=== PATIENT | male | born 1975 | race Caucasian/White ===

== ENCOUNTER 2018-02-28 18:39 | Emergency (ER) | payer OTHER ==
[2018-02-28] MEDS ORDERED: ceFAZolin 1,000 MG in DEXTROSE/WATER 1 50ML.BAG IVPB STA (18:55)
[2018-02-28 19:02] LABS: Basophils # (A) 0.1 k/uL (0-0.2); Basophils % (A) 1 %; Eosinophils # (A) 0.2 k/uL (0-0.7); Eosinophils % (A) 2 %; HCT 51.3 % (39.0-53.0); Lymphocytes # (A) 2.7 k/uL (1.0-4.8); Lymphocytes % (A) 39 %; MCH 33.6 pg (25.0-35.0); MCHC 33.1 g/dL (31.0-37.0); MCV 101.5 fL (80.0-100.0); Mean Platelet Volume 6.9; Monocytes # (A) 0.4 k/uL (0-1.0); Monocytes % (A) 6 %; Neutrophils # (A) 3.5 k/uL (1.3-7.7); Neutrophils % (A) 50 %; Platelet Count 189 k/uL (150-450); RBC 5.06 m/uL (4.30-5.90); RDW 12.6 % (11.5-15.5)
[2018-02-28] MEDS ORDERED: PROPOFOL 10 MG/ML 20 ML VIAL IV STA (19:02)
[2018-02-28] MEDS ORDERED: DIPH,PERTUS(ACELL)TETVAC-LF 0.5 ML VIAL IM ONE (19:02)
--- NOTE | 2018-02-28 19:03 | XR ---
EXAMINATION TYPE: XR ankle limited LT DATE OF EXAM: 02/28/2018 COMPARISON: NONE HISTORY: Trauma. Pain TECHNIQUE: 2 views FINDINGS: There is comminuted fracture distal fibula. There is anterior dislocation of the talus. The re is significant overriding of the distal tibia with the talus. There is probably a fracture of the medial malleolus. IMPRESSION: There is comminuted fracture dislocation of the ankle joint. Significant anterior displac ement of the talus. Fracture appears open on the posterior aspect. There is probably fracture of the posterior malleolus.
--- NOTE | 2018-02-28 19:05 | XR ---
EXAMINATION TYPE: XR chest 1V portable DATE OF EXAM: 02/28/2018 COMPARISON: NONE HISTORY: Ankle trauma. Chest pain TECHNIQUE: Single frontal view of the chest is obtained. FINDINGS: Heart and mediastinum are normal. Lungs are clear. Diaphragm is normal. There are chest le ads. IMPRESSION: Normal chest
--- NOTE | 2018-02-28 19:08 | ED ---
General Adult HPI - General Stated complaint: leg injury Time Seen by Provider: 02/28/18 18:40 Source: patient, EMS, RN notes reviewed, old records reviewed Mode of arrival: EMS Limitations: no limitations - History of Present Illness Initial comments: 43-year-old male presenting as a priority 2 trauma, open ankle injury. According the EMS patient has pulseless left lower extremity. Patient was jumping on a trampoline, fell onto his left ankle. He is complaining only of ankle pain. No head neck or back pain. He does admit to drinking some alcohol. No chest pain or abdominal pain. No difficulty breathing. Patient is uncertain of his last tetanus. - Related Data Allergies Allergy/AdvReac Type Severity Reaction Status Date / Time No Known Allergies Allergy Verified 02/28/18 18:48 Review of Systems ROS Statement: Those systems with pertinent positive or pertinent negative responses have been documented in the HPI. ROS Other: All systems not noted in ROS Statement are negative. Past Medical History Past Medical History: COPD, Hypertension History of Any Multi-Drug Resistant Organisms: None Reported Past Surgical History: Orthopedic Surgery Additional Past Surgical History / Comment(s): jaw, wrist Past Psychological History: No Psychological Hx Reported Smoking Status: Current every day smoker Past Alcohol Use History: Daily Past Drug Use History: None Reported General Exam Limitations: no limitations General appearance: alert, in no apparent distress, appears intoxicated Head exam: Present: atraumatic, normocephalic Eye exam: Present: normal appearance, PERRL ENT exam: Present: normal exam Neck exam: Present: normal inspection. Absent: tenderness, meningismus Respiratory exam: Present: normal lung sounds bilaterally. Absent: respiratory distress, wheezes Cardiovascular Exam: Present: regular rate, normal rhythm GI/Abdominal exam: Present: soft. Absent: distended, tenderness, guarding Extremities exam: Present: other (Left ankle: Fracture dislocation noted on external exam, the lower portion of the tibia is completely exposed through the medial aspect of the ankle. There is delayed cap refill and thready pulse in the foot.) Course Vital Signs 02/28/18 18:46 Pulse Rate 87 Respiratory 20 Rate Blood Pressure 146/101 Procedures - Orthopedic Fracture Reduction Fracture #1 Consent Obtained: verbal consent Time Out Performed: Yes Side: left Fracture Reduction Location: tibia, fibula Analgesia: procedural sedation Technique: direct manipulation Post Reduction X-rays Demonstrate: anatomical reduction Post-Reduction Neuro Exam: no change Post-Reduction Vascular Exam: other (Improved. Pulse) Splint Applied: Yes Patient Tolerated Procedure: well - Orthopedic Splinting/Casting Injury #1 Side: left Lower Extremity Injury Location: ankle Lower Extremity Immobilizer: synthetic pre-padded splint, fiberglass cast Other Orthopedic Equipment: other Additional Comments: Patient placed in posterior mold with stirrup. Pulse is improved Refill less than 2 seconds. Medical Decision Making - Medical Decision Making Case discussed with orthopedics on-call Dr. Brooks at [phone], recommends transfer. 43-year-old male with open fracture dislocation left ankle. Ankle is irrigated with normal saline, patient given antibiotics, tetanus updated, under conscious sedation the ankle is reduced, there is satisfactory alignment with improved pulse and cap refill. Case is discussed with ER physician and [facility], will accept transfer for urgent orthopedic evaluation. All laboratory studies are pending. Critical Care Time Critical Care Time: Yes Total Critical Care Time: 35 Disposition Clinical Impression: Open fracture dislocation of ankle Disposition: OTHER INSTITUTION NOT DEFINED Condition: Serious Is patient prescribed a controlled substance at d/c from ED?: No Referrals: Tracy Maynard MD [Primary Care Provider] - 1-2 days Time of Disposition: 19:07 - Out of Hospital Transfer - Req. Specs Out of Hospital Transfer - Requested Specifics: Other Emergency Center ( Transferred to [facility])
[2018-02-28 19:10] LABS: ALT 140 U/L (21-72); AST 103 U/L (17-59); Albumin 4.5 g/dL (3.5-5.0); Alkaline Phosphatase 52 U/L (38-126); Amylase 49 U/L (30-110); Anion Gap 13 mmol/L; Blood Urea Nitrogen 4 mg/dL (9-20); Calcium 8.9 mg/dL (8.4-10.2); Carbon Dioxide 23 mmol/L (22-30); Chloride 102 mmol/L (98-107); Glucose 99 mg/dL (74-99); Lipase 132 U/L (23-300); Potassium 4.3 mmol/L (3.5-5.1); Sodium 138 mmol/L (137-145); Total Bilirubin 0.4 mg/dL (0.2-1.3); Total Protein 7.7 g/dL (6.3-8.2)
[2018-02-28 19:14] LABS: Creatine Kinase 88 U/L (55-170); Partial Thromboplastin Time 23.6 sec (22.0-30.0); Prothrombin Time 9.8 sec (9.0-12.0)
[2018-02-28 19:21] LABS: Alcohol 379 mg/dL
[2018-02-28 19:26] LABS: Creatine Kinase MB 0.7 ng/mL (0.0-2.4); Troponin I <0.012 ng/mL (0.000-0.034)
--- NOTE | 2018-02-28 19:29 | XR ---
EXAMINATION TYPE: XR ankle limited LT DATE OF EXAM: 02/28/2018 CLINICAL HISTORY: TECHNIQUE: 2 views COMPARISON: Today FINDINGS: There is anatomic reduction of the dislocated talus. There is comminuted fracture distal fi bula and probably a large chip fracture of the posterior malleolus. Detail is limited. Calcaneus is n ot entirely included on the exam. IMPRESSION: Much improved anatomic position of the ankle joint.
[2018-02-28 19:57] VITALS: BP 146/86; PULSE 85; RESP 18
== END 2018-02-28 19:21 | disposition short-term general hospital (02) ==
LOC: EC 18:39
DX: S82.832B Other fracture of upper and lower end of left fibula, initial encounter for open fracture type I or II (principal); F10.129 Alcohol abuse with intoxication, unspecified; F17.200 Nicotine dependence, unspecified, uncomplicated; Z23 Encounter for immunization; W19.XXXA Unspecified fall, initial encounter; Y93.44 Activity, trampolining
CPT/HCPCS: 99291; 27788; 99152; 96374; 90471; 36415; 86900; 86901; 80053; 82150; 82550; 82553; 83605; 83690; 84484; 85025; 85610; 85730; 86850; 73600; 71045; 90715; L0120; G0480; J0690; J2704; 80320

== ENCOUNTER 2018-08-14 12:31 | Emergency (ER) | payer OTHER ==
[2018-08-14 12:40] VITALS: RESP 18
[2018-08-14] MEDS ORDERED: MORPHINE SULFATE 4 MG/ML SYRINGE IM STA (13:00)
--- NOTE | 2018-08-14 13:16 | ED ---
Lower Extremity Injury HPI - General Source: patient, family Mode of arrival: ambulatory Limitations: no limitations <Kayleigh Muro - Last Filed: 08/14/18 14:33> <Raf Waters - Last Filed: 08/14/18 15:03> - General Chief Complaint: Extremity Injury, Lower Stated Complaint: left ankle pain/swelling - History of Present Illness Initial Comments: 43-year-old male past medical history of previous left ankle fracture repaired at [facility] by in 02/2018. Patient states that he has been amply on his ankle more than recommended and has lost his use for ambulation. Patient states that last week he also slipped and fell on ice twisting his left ankle. Patient was considered displacement. Patient did note an area of erythema on the medial aspect of the left ankle, patient states she was concerned infection. Upon arrival patient appears well he denies any fever, chills, general malaise. Pt ambulating weight bearing on the left foot when entering ER. Remaining ROS (- ), patient denies any shortness of breath, chest pain, back pain, abdominal pain, nausea or vomiting, numbness or tingling, dysuria or hematuria, cons tipation or diarrhea, headaches or visual changes, or any other complaints. (Kayleigh Muro) - Related Data Home Medications Medication Instructions Recorded Confirmed No Known Home Medications 02/28/18 02/28/18 Allergies Allergy/AdvReac Type Severity Reaction Status Date / Time No Known Allergies Allergy Verified 08/14/18 12:37 Review of Systems ROS Other: All systems not noted in ROS Statement are negative. <Kayleigh Muro - Last Filed: 08/14/18 14:33> ROS Other: All systems not noted in ROS Statement are negative. <Raf Waters - Last Filed: 08/14/18 15:03> ROS Statement: Those systems with pertinent positive or pertinent negative responses have been documented in the HPI. Past Medical History Past Medical History: COPD, Hypertension History of Any Multi-Drug Resistant Organisms: None Reported Past Surgical History: Orthopedic Surgery Additional Past Surgical History / Comment(s): jaw, wrist Past Psychological History: No Psychological Hx Reported Smoking Status: Current every day smoker Past Alcohol Use History: Daily Past Drug Use History: None Reported <Kayleigh Muro - Last Filed: 08/14/18 14:33> General Exam Limitations: no limitations <Kayleigh Muro - Last Filed: 08/14/18 14:33> - General Exam Comments Initial Comments: General: The patient is awake and alert, in no distress, and does not appear acutely ill. Eye: Pupils are equal, round and reactive to light, extra-ocular movements are intact. No nystagmus. There is normal conjunctiva bilaterally. No signs of icterus. Ears, nose, mouth and throat: There are moist mucous membranes and no oral lesions. Neck: The neck is supple, there is no tenderness or JVD. Cardiovascular: There is a regular rate and rhythm. No murmur, rub or gallop is appreciated. Respiratory: Lungs are clear to auscultation, respirations are non-labored, breath sounds are equal. No wheezes, stridor, rales, or rhonchi. Musculoskeletal: Upon inspection of the ankles bilaterally there is soft tissue swelling of the left ankle with tenderness to palpation over the ankle joint diffusely. There is area of erythema on the medial aspect with palpable fluctuance. Sensation intact both proximal distal to injury patient can somewhat range at the left ankle however this is limited, he states this is baseline from surgery. DP pulses equal bilaterally 2+. Capillary refill < 2 seconds. Neurological: A&O x 3. CN II-XII intact, There are no obvious motor or sensory deficits. Coordination appears grossly intact. Speech is normal. Skin: Skin is warm and dry and no rashes or lesions are noted. Psychiatric: Cooperative, appropriate mood & affect, normal judgment. (Kayleigh Muro) Course <Raf Waters - Last Filed: 08/14/18 15:03> Vital Signs 08/14/18 08/14/18 12:37 14:47 Temperature 97.9 F 97.8 F Pulse Rate 109 H 88 Respiratory 18 18 Rate Blood Pressure 148/96 148/97 O2 Sat by Pulse 97 96 Oximetry - Reevaluation(s) Reevaluation #1: 08/14/18 15:02 PA supervision: I proceeded [id number] evaluation the patient he has a history of a open distal tib-fib fracture with ORIF in February this past year. He was to wear an orthopedic boot for 6 months he did not wear it. He has been ambulating. He has had pain and some swelling with erythema to the medial malleolus. Patient does have evidence of abscess formation this was confirmed after I&D by the physician travel assistant. The case was discussed with Dr. Dickey and the patient be transferred to [facility] for further evaluation and care. (Raf Waters) Medical Decision Making <Kayleigh Muro - Last Filed: 08/14/18 14:33> - Medical Decision Making 43yo with swelling and erythema of left ankle. No constitutional symptoms. Patient does not appear toxic. Recent fall. XR (-) for obvious hardware abnormalities or acute fracture. The erythema appears within tissues with palpable abscess that was needle aspirated revealing magdalena think pus. Pt surgeon contacted. I spoke with Dr. Dickey directly, recommended transfer. He states he will obtain laboratory studies at his facility. Pt prefers personal vehicle transfer. Dr. Dickey agreedable with this type of transfer and am I. she was evaluated in person with attending provider Dr. Waters who is agreeable patient's care plan as well as transfer. Patient states he will go directly to accepting facility. Patient is provided with directions as well as an address. Patient transferred, appearing well. (Kayleigh Muro) Disposition Is patient prescribed a controlled substance at d/c from ED?: No Time of Disposition: 14:39 - Out of Hospital Transfer - Req. Specs Out of Hospital Transfer - Requested Specifics: Other Emergency Center ([facility]-Dr. Dickey) <Kayleigh Muro - Last Filed: 08/14/18 14:33> <Raf Waters - Last Filed: 08/14/18 15:03> Clinical Impression: Cellulitis of left ankle, Abscess, Right ankle injury, Right ankle swelling Disposition: OTHER INSTITUTION NOT DEFINED Condition: Stable Additional Instructions: Please go to [facility] directly as discussed. Emergency department has accepted transfer and is awaiting your arrival Referrals: None,Stated [Primary Care Provider] - 1-2 days
--- NOTE | 2018-08-14 13:48 | XR ---
Left ankle HISTORY: Trauma and pain 3 views of the left ankle correlated to prior exam 02/28/2018 There is extensive soft tissue swelling. Postop changes are present status post open reduction director international al fixation for trimalleolar fracture. Possible ankle joint effusion. Plantar calcaneal spur is noted . Some joint space loss present at the tibiotalar joint. Widening of the tibiotalar joint of the medi al ankle mortise level could be due to ligamentous laxity or disruption. Ossific densities are presen t about the fracture sites which may be due to heterotopic new bone formation. IMPRESSION: Postop changes. No definite acute fracture or dislocation. Soft tissue swelling. Addition al findings above.
[2018-08-14 14:48] VITALS: BP 148/97; PULSE 88; TEMP 97.8
== END 2018-08-14 15:04 | disposition short-term general hospital (02) ==
LOC: EC 12:31
DX: L03.116 Cellulitis of left lower limb (principal); L02.416 Cutaneous abscess of left lower limb; S99.911A Unspecified injury of right ankle, initial encounter; F17.200 Nicotine dependence, unspecified, uncomplicated; Z87.81 Personal history of (healed) traumatic fracture; Z96.698 Presence of other orthopedic joint implants; W00.0XXA Fall on same level due to ice and snow, initial encounter
CPT/HCPCS: 73610; 99284; 10160; 96372; J2270

== ENCOUNTER 2018-12-19 14:32 | Emergency (ER) | payer OTHER ==
[2018-12-19 14:42] VITALS: RESP 18; TEMP 98.1
--- NOTE | 2018-12-19 15:05 | ED ---
Lower Extremity Injury HPI - General Chief Complaint: Extremity Injury, Lower Stated Complaint: Abscess on ankle Time Seen by Provider: 12/19/18 14:48 Source: patient, RN notes reviewed Mode of arrival: ambulatory Limitations: no limitations - History of Present Illness Initial Comments: 43-year-old male presents emergency Department with chief complaint of left ankle pain, swelling and abscess. Patient states that he had original surgery last February for ORIF by Dr. Dickey. Patient states that he cannot have an infection and states that he had a washout in August and states that he was on IV antibiotics and did follow-up with infectious disease. Patient states that he was cleared to return to normal activity. Patient states over the last 5-6 days states that slowly progressively worsening pain to the point where he cannot bear any weight on it. Patient states that he noticed an area swelling, redness and which feels like a fluctuant abscess. Patient reports subjective fevers and chills and night sweats. Patient states that he was not have any pain at this. - Related Data Home Medications Medication Instructions Recorded Confirmed Lisinopril 20 mg PO DAILY 12/19/18 12/19/18 Allergies Allergy/AdvReac Type Severity Reaction Status Date / Time No Known Allergies Allergy Verified 12/19/18 14:52 Review of Systems ROS Statement: Those systems with pertinent positive or pertinent negative responses have been documented in the HPI. ROS Other: All systems not noted in ROS Statement are negative. Past Medical History Past Medical History: COPD, Hypertension History of Any Multi-Drug Resistant Organisms: None Reported Past Surgical History: Orthopedic Surgery Additional Past Surgical History / Comment(s): jaw, wrist, L ankle Past Psychological History: Anxiety Smoking Status: Current every day smoker Past Alcohol Use History: None Reported, Daily Past Drug Use History: None Reported General Exam Limitations: no limitations General appearance: alert, in no apparent distress Head exam: Present: atraumatic, normocephalic, normal inspection Respiratory exam: Present: normal lung sounds bilaterally. Absent: respiratory distress, wheezes, rales, rhonchi, stridor Cardiovascular Exam: Present: regular rate, normal rhythm, normal heart sounds. Absent: systolic murmur, diastolic murmur, rubs, gallop, clicks Extremities exam: Present: other (Left ankle there is slightly increased erythema and bogginess along the medial incision site. There is tenderness diffusely, moderate swelling neurovascular intact) Skin exam: Present: warm, dry, intact Course Vital Signs 12/19/18 14:38 Temperature 98.1 F Pulse Rate 107 H Respiratory 18 Rate Blood Pressure 158/79 O2 Sat by Pulse 95 Oximetry Procedures - Incision & Drainage Consent Obtained: verbal consent Site: lower extremity (Left ankle) Size (cm): 2 I&D Cleaning Method: Chloroprep Needle Aspiration Performed?: Yes I&D Drainage Obtained: Pus Culture Obtained?: Yes Medical Decision Making - Medical Decision Making 43-year-old male presented from it for increasing ankle pain. Patient had lab work, x-ray. Patient also had aspiration of the fluctuant pocket on his ankle since found to be purulent drainage. Patient states case discussed with this orthopedic physician Dr. Dickey who recommends menstruation to be transferred to [facility]. Patient was given Ancef and will need further antibiotics at this time. - Lab Data Result diagrams: 12/19/18 15:09 12/19/18 15:09 Lab Results 12/19/18 12/19/18 12/19/18 Range/Units 15:09 15:09 15:09 WBC 7.8 (3.8-10.6) k/uL RBC 4.64 (4.30-5.90) m/uL Hgb 15.1 (13.0-17.5) gm/dL Hct 43.7 (39.0-53.0) % MCV 94.3 (80.0-100.0) fL MCH 32.6 (25.0-35.0) pg MCHC 34.6 (31.0-37.0) g/dL RDW 13.9 (11.5-15.5) % Plt Count 207 (150-450) k/uL Neutrophils % 81 % Lymphocytes % 9 % Monocytes % 6 % Eosinophils % 2 % Basophils % 0 % Neutrophils # 6.3 (1.3-7.7) k/uL Lymphocytes # 0.7 L (1.0-4.8) k/uL Monocytes # 0.5 (0-1.0) k/uL Eosinophils # 0.2 (0-0.7) k/uL Basophils # 0.0 (0-0.2) k/uL Sodium 131 L (137-145) mmol/L Potassium 4.7 (3.5-5.1) mmol/L Chloride 97 L (98-107) mmol/L Carbon Dioxide 24 (22-30) mmol/L Anion Gap 10 mmol/L BUN 11 (9-20) mg/dL Creatinine 0.62 L (0.66-1.25) mg/dL Est GFR (CKD-EPI)AfAm >90 (>60 ml/min/1.73 sqM) Est GFR (CKD-EPI)NonAf >90 (>60 ml/min/1.73 sqM) Glucose 110 H (74-99) mg/dL Plasma Lactic Acid Rich 1.1 (0.7-2.0) mmol/L Calcium 9.9 (8.4-10.2) mg/dL C-Reactive Protein 30.5 H (<10.0) mg/L Disposition Clinical Impression: Septic arthritis of ankle, Abscess of ankle Disposition: OTHER INSTITUTION NOT DEFINED Condition: Stable Referrals: Tracy Maynard MD [Primary Care Provider] - 1-2 days - Out of Hospital Transfer - Req. Specs Out of Hospital Transfer - Requested Specifics: Other Emergency Center ([facility])
[2018-12-19 15:21] LABS: Basophils % (A) 0 %; Eosinophils # (A) 0.2 k/uL (0-0.7); Eosinophils % (A) 2 %; HCT 43.7 % (39.0-53.0); HGB 15.1 gm/dL (13.0-17.5); Lymphocytes # (A) 0.7 k/uL (1.0-4.8); Lymphocytes % (A) 9 %; MCH 32.6 pg (25.0-35.0); MCHC 34.6 g/dL (31.0-37.0); MCV 94.3 fL (80.0-100.0); Monocytes # (A) 0.5 k/uL (0-1.0); Monocytes % (A) 6 %; Neutrophils # (A) 6.3 k/uL (1.3-7.7); Neutrophils % (A) 81 %; Platelet Count 207 k/uL (150-450); RBC 4.64 m/uL (4.30-5.90); RDW 13.9 % (11.5-15.5); WBC 7.8 k/uL (3.8-10.6)
--- NOTE | 2018-12-19 15:27 | XR ---
EXAMINATION TYPE: XR ankle complete LT DATE OF EXAM: 12/19/2018 COMPARISON: 08/14/2018 HISTORY: Pain FINDINGS: Three views of the ankle demonstrate asymmetry the ankle mortise with narrowing. There is widening of the halo tibial joint medially. This is similar to the prior exam. Extensive postsurgical changes ar e noted there appears to be widening of the tibiofibular joint. Soft tissue edema and diffuse osteope melina noted. Soft tissue ossification noted. Small plantar calcaneal spur. 6 joint effusion suspected. Abnormal morphology of the talar dome not excluded. IMPRESSION: 1. Postsurgical changes are stable. Distortion of the ankle mortise and widening of the tibiofibular joint are stable. Soft tissue or a ligamentous injury in the differential diagnosis. 2. There is a localized lucency involving the anterior margin of the inferior calcaneus noted on the lateral view. If there is concern for infection correlate with triple phase bone scan.
[2018-12-19 15:33] LABS: African American GFR (CKD) >90 (>60 ml/min/1.73 sqM); Anion Gap 10 mmol/L; Blood Urea Nitrogen 11 mg/dL (9-20); C Reactive Protein 30.5 mg/L (<10.0); Calcium 9.9 mg/dL (8.4-10.2); Carbon Dioxide 24 mmol/L (22-30); Chloride 97 mmol/L (98-107); Glucose 110 mg/dL (74-99); Potassium 4.7 mmol/L (3.5-5.1); Sodium 131 mmol/L (137-145)
[2018-12-19] MEDS ORDERED: HYDROmorphone 1 MG/ML 1 ML SYRINGE IVP STA (15:55)
[2018-12-19] MEDS ORDERED: ONDANSETRON 4 MG/2 ML VIAL IVP STA (15:55)
[2018-12-19] MEDS ORDERED: ceFAZolin IN SWFI 2 GM/20 ML SYRINGE IVP ONE (16:00)
[2018-12-19 17:14] VITALS: BP 141/70; PULSE 99
== END 2018-12-19 17:14 | disposition short-term general hospital (02) ==
LOC: EC 14:32
DX: L02.416 Cutaneous abscess of left lower limb (principal); M00.9 Pyogenic arthritis, unspecified; I10 Essential (primary) hypertension; F17.200 Nicotine dependence, unspecified, uncomplicated; Z79.899 Other long term (current) drug therapy
CPT/HCPCS: 36415; 80048; 83605; 85025; 86140; 87040; 87070; 87205; 73610; 99284; 10160; 96374; 96375 ×2; J2405; J1170; J0690; 87077; 87186

== ENCOUNTER 2019-03-18 12:49 | Inpatient (IN) | payer OTHER ==
[2019-03-18] MEDS ORDERED: MORPHINE SULFATE 4 MG/ML SYRINGE IVP STA (13:21)
--- NOTE | 2019-03-18 13:38 | ED ---
General Adult HPI <JtRaf - Last Filed: 03/18/19 14:38> - General Source: patient, family Mode of arrival: wheelchair Limitations: no limitations <Brandt Boyd - Last Filed: 03/18/19 19:55> - General Chief complaint: Extremity Injury, Lower Stated complaint: Fall Time Seen by Provider: 03/18/19 13:05 - History of Present Illness Initial comments: Patient is a 44-year-old male presenting to the emergency department with a chief complaint of hip pain. Patient reports he had a recent ankle surgery and is still recovering in using crutches to avoid weightbearing. Patient reports he attempted to walk with his crutches last night in the dark when he slipped and fell on the left side. Patient reports pain in the left hip. Patient reports she is unable to move his left leg at all. Patient reports the pain is a 10 and throbbing. Patient denies any numbness or tingling. Patient does report some loss of sensation in the left lobe states that was from the previous injury that was repaired recently. Patient denies taking medication to alleviate the symptoms. Patient denies any head injury. Patient is not on blood thinners. (Brandt Boyd) - Related Data Home Medications Medication Instructions Recorded Confirmed Lisinopril 20 mg PO DAILY 12/19/18 03/18/19 Levofloxacin [Levaquin] 500 mg PO DAILY 03/18/19 03/18/19 Lisinopril [Prinivil] 20 mg PO DAILY 03/18/19 03/18/19 Pregabalin [Lyrica] 150 mg PO BID 03/18/19 03/18/19 amLODIPine [Norvasc] 5 mg PO DAILY 03/18/19 03/18/19 Allergies Allergy/AdvReac Type Severity Reaction Status Date / Time No Known Allergies Allergy Verified 03/18/19 13:17 Review of Systems ROS Other: All systems not noted in ROS Statement are negative. <Raf Waters - Last Filed: 03/18/19 14:38> ROS Other: All systems not noted in ROS Statement are negative. <Brandt Boyd - Last Filed: 03/18/19 19:55> ROS Statement: Those systems with pertinent positive or pertinent negative responses have been documented in the HPI. Past Medical History Past Medical History: COPD, Hypertension History of Any Multi-Drug Resistant Organisms: None Reported Past Surgical History: Orthopedic Surgery Additional Past Surgical History / Comment(s): jaw, wrist, L ankle Past Psychological History: Anxiety Smoking Status: Current every day smoker Past Alcohol Use History: Daily Past Drug Use History: None Reported - Past Family History Father Family Medical History: Cancer, Diabetes Mellitus Mother Family Medical History: Cancer <DebVenkatao - Last Filed: 03/18/19 19:55> General Exam Limitations: no limitations General appearance: alert, in no apparent distress Head exam: Present: atraumatic, normocephalic, normal inspection Eye exam: Present: normal appearance, PERRL, EOMI Pupils: Present: normal accommodation ENT exam: Present: normal exam, mucous membranes moist, normal external ear exam Neck exam: Present: normal inspection Respiratory exam: Present: normal lung sounds bilaterally Cardiovascular Exam: Present: regular rate, normal rhythm, normal heart sounds Extremities exam: Present: tenderness (Left hip tenderness along the posterior lateral aspect.), normal capillary refill, joint swelling (Left ankle from vanegas rgery). Absent: normal inspection (Healing incision site on the left ankle.), full ROM (Absent range of motion in the left leg. Unable to assess passive range of motion due to pain ), calf tenderness Back exam: Present: normal inspection, full ROM Neurological exam: Present: alert, oriented X3 Psychiatric exam: Present: normal affect, normal mood Skin exam: Present: warm, intact, normal color <Brandt Boyd - Last Filed: 03/18/19 19:55> Course <Raf Waters - Last Filed: 03/18/19 14:38> Vital Signs 03/18/19 03/18/19 13:01 14:00 Temperature 98.1 F Pulse Rate 100 98 Respiratory 18 87 H Rate Blood Pressure 135/89 130/78 O2 Sat by Pulse 98 98 Oximetry - Reevaluation(s) Reevaluation #1: 03/18/19 14:38 PA supervision: I personally evaluate this case and did discuss the findings with orthopedics and with Dr. Reid. Patient be admitted to Dr. Reid with Dr. Neumann on consultation. I do agree with the assessment and plan. (Raf Waters) Medical Decision Making - Lab Data Result diagrams: 03/18/19 14:08 03/18/19 14:08 <Raf Waters - Last Filed: 03/18/19 14:38> - Lab Data Result diagrams: 03/18/19 14:08 03/18/19 14:08 <Brandt Boyd - Last Filed: 03/18/19 19:55> - Medical Decision Making Patient is a 44-year-old male presenting to emergency Department with a chief complaint of hip pain. Patient was walking using crutches yesterday and slipped on gravel injuring his left hip. Patient had recent ankle surgery and developed osteomyelitis for which she was treated for 5 days in the hospital. Patient is currently on Levaquin. Physical examination patient has is not able to move his left leg at all. He does have tenderness on the lateral and posterior aspect the left hip. X-rays indicative of a surgical neck femur fracture. Labs were obtained. Chest x-ray obtained. Patient given analgesia. I spoke with Dr. Krystle Sandoval's PA, who states they will accept the patient. Patient will be nothing by mouth after midnight. Case discussed with Dr. Waters. Admitting physician is Dr Reid. Ortho consulted. (Brandt Boyd) - Lab Data Lab Results 03/18/19 03/18/19 03/18/19 Range/Units 14:08 14:08 14:08 WBC 11.9 H (3.8-10.6) k/uL RBC 4.24 L (4.30-5.90) m/uL Hgb 14.1 (13.0-17.5) gm/dL Hct 41.7 (39.0-53.0) % MCV 98.1 (80.0-100.0) fL MCH 33.3 (25.0-35.0) pg MCHC 34.0 (31.0-37.0) g/dL RDW 13.2 (11.5-15.5) % Plt Count 219 (150-450) k/uL Neutrophils % 90 % Lymphocytes % 3 % Monocytes % 4 % Eosinophils % 1 % Basophils % 1 % Neutrophils # 10.6 H (1.3-7.7) k/uL Lymphocytes # 0.4 L (1.0-4.8) k/uL Monocytes # 0.5 (0-1.0) k/uL Eosinophils # 0.1 (0-0.7) k/uL Basophils # 0.1 (0-0.2) k/uL PT 9.5 (9.0-12.0) sec INR 0.9 (<1.2) APTT 27.2 (22.0-30.0) sec Sodium 123 L (137-145) mmol/L Potassium 5.1 (3.5-5.1) mmol/L Chloride 91 L (98-107) mmol/L Carbon Dioxide 16 L (22-30) mmol/L Anion Gap 16 mmol/L BUN 11 (9-20) mg/dL Creatinine 0.76 (0.66-1.25) mg/dL Est GFR (CKD-EPI)AfAm >90 (>60 ml/min/1.73 sqM) Est GFR (CKD-EPI)NonAf >90 (>60 ml/min/1.73 sqM) Glucose 120 H (74-99) mg/dL Calcium 9.8 (8.4-10.2) mg/dL Total Bilirubin 0.7 (0.2-1.3) mg/dL AST 27 (17-59) U/L ALT 18 L (21-72) U/L Alkaline Phosphatase 64 (38-126) U/L Total Protein 7.6 (6.3-8.2) g/dL Albumin 4.4 (3.5-5.0) g/dL Disposition <Raf Waters - Last Filed: 03/18/19 14:38> Is patient prescribed a controlled substance at d/c from ED?: No Time of Disposition: 19:00 <Brandt Boyd - Last Filed: 03/18/19 19:55> Clinical Impression: Femoral neck fracture Disposition: ADMITTED IP TO THIS HOSP Condition: Stable
--- NOTE | 2019-03-18 14:05 | XR ---
EXAMINATION TYPE: XR Hip Complete LT , 2 VIEWS DATE OF EXAM ORDERED: 03/18/2019 HISTORY: pain . COMPARISON: None. FINDINGS: There is a comminuted intertrochanteric fracture of the left hip with mild foreshortening. IMPRESSION: COMMINUTED INTERTROCHANTERIC FRACTURE OF THE LEFT HIP. CODE A: INITIAL ENCOUNTER FOR CLOSED FRACTURE.
[2019-03-18 14:20] LABS: Basophils # (A) 0.1 k/uL (0-0.2); Basophils % (A) 1 %; Eosinophils # (A) 0.1 k/uL (0-0.7); Eosinophils % (A) 1 %; HCT 41.7 % (39.0-53.0); HGB 14.1 gm/dL (13.0-17.5); Lymphocytes # (A) 0.4 k/uL (1.0-4.8); Lymphocytes % (A) 3 %; MCH 33.3 pg (25.0-35.0); MCV 98.1 fL (80.0-100.0); Mean Platelet Volume 6.4; Monocytes # (A) 0.5 k/uL (0-1.0); Monocytes % (A) 4 %; Neutrophils # (A) 10.6 k/uL (1.3-7.7); Neutrophils % (A) 90 %; Platelet Count 219 k/uL (150-450); RBC 4.24 m/uL (4.30-5.90); RDW 13.2 % (11.5-15.5); WBC 11.9 k/uL (3.8-10.6)
--- NOTE | 2019-03-18 14:21 | XR ---
EXAMINATION TYPE: XR chest 1V DATE OF EXAM: 03/18/2019 COMPARISON: Chest radiograph 02/28/2018 HISTORY: Left hip pain from fall yesterday TECHNIQUE: Single frontal view of the chest is obtained. FINDINGS: There is no focal air space opacity, pleural effusion, or pneumothorax seen. The cardiac silhouette size is within normal limits. The osseous structures are grossly intact. IMPRESSION: No acute process.
[2019-03-18 14:29] LABS: ALT 18 U/L (21-72); AST 27 U/L (17-59); African American GFR (CKD) >90 (>60 ml/min/1.73 sqM); Albumin 4.4 g/dL (3.5-5.0); Alkaline Phosphatase 64 U/L (38-126); Anion Gap 16 mmol/L; Blood Urea Nitrogen 11 mg/dL (9-20); Calcium 9.8 mg/dL (8.4-10.2); Carbon Dioxide 16 mmol/L (22-30); Chloride 91 mmol/L (98-107); Glucose 120 mg/dL (74-99); Potassium 5.1 mmol/L (3.5-5.1); Sodium 123 mmol/L (137-145); Total Bilirubin 0.7 mg/dL (0.2-1.3); Total Protein 7.6 g/dL (6.3-8.2)
[2019-03-18 14:35] LABS: INR 0.9 (<1.2); Partial Thromboplastin Time 27.2 sec (22.0-30.0); Prothrombin Time 9.5 sec (9.0-12.0)
[2019-03-18] MEDS ORDERED: IBUPROFEN 400 MG TAB PO PRN (14:40)
[2019-03-18] MEDS ORDERED: ACETAMINOPHEN TAB 325 MG TAB PO PRN (14:40)
[2019-03-18] MEDS ORDERED: NALOXONE 0.4 MG/ML 1 ML VIAL IV PRN (14:40)
[2019-03-18] MEDS ORDERED: ALPRAZolam 0.25 MG TAB PO PRN (14:40)
[2019-03-18] MEDS: SODIUM CHLORIDE 0.9% 1,000 ML IV SCH (14:49)
[2019-03-18 16:41] VITALS: BMI 26.6
[2019-03-18] MEDS: HYDROmorphone 0.5 MG/0.5 ML SYRINGE IVP PRN ×2 (17:33→20:36)
[2019-03-18] MEDS: NICOTINE 21MG/24HR PATCH TRANSDERM SCH (18:04)
--- NOTE | 2019-03-18 18:46 | P.HPIM ---
History of Present Illness H&P Date: 03/18/19 Chief Complaint: Mechanical fall Mr. Franco is a 43-year-old male with a past medical history of hypertension, COPD, nicotine dependence, left ankle fracture with osteomyelitis currently on antibiotic coming to the hospital after having a fall last night. Patient had left ankle fracture and is currently on levofloxacin for osteomyelitis and using crutches to move around. Last night he tried to get up with the help of crutches and slipped and fell on his left side. Patient started to have pain in the left hip and came to the hospital for further evaluation. Patient states that he slipped and fell but did not have any chest pain or palpitations or dizziness at the time of fall. In the ER patient had an x-ray of his left hip showing comminuted intertrochanteric fracture of the left hip, so he is admitted for further management. Patient denies having any chest pain or palpitations. No fever chills or rigors. No cough or difficulty breathing. Not all been nausea vomiting or diarrhea. No dysuria or hematuria. Patient is a current every day smoker. Review of Systems REVIEW OF SYSTEMS: PSYCH: No anxiety or depression NEURO:No c/o weakness of the extremties, No facial droop, No speech abnormalities. VASCULAR: Peripheral nervous system within the normal limits no edema HEMATOLOGIC: No history of easy bleeding and bruising . No recent infections . RESPIRATORY: No cough, No SOB, No chest discomfort. IMMUNE: No infections INTEGUMENT: no rashes OPHTHALMOLOGIC: No blurry vision and no eye discharge : No dysuria or hematuria CARDIAC: No chest pain , shortness of breath , paroxysmal nocturnal dyspnea MUSCULOSKELETAL : Left ankle fracture with osteomyelitis GI: No abdominal pain, Nausea or vomiting. No constipation or diarrhea. Past Medical History Past Medical History: COPD, Hypertension History of Any Multi-Drug Resistant Organisms: None Reported Past Surgical History: Orthopedic Surgery Additional Past Surgical History / Comment(s): jaw, wrist, L ankle Past Psychological History: Anxiety Smoking Status: Current every day smoker Past Alcohol Use History: Daily Past Drug Use History: None Reported - Past Family History Father Family Medical History: Cancer, Diabetes Mellitus Mother Family Medical History: Cancer Medications and Allergies Home Medications Medication Instructions Recorded Confirmed Type Lisinopril 20 mg PO DAILY 12/19/18 03/18/19 History Levofloxacin [Levaquin] 500 mg PO DAILY 03/18/19 03/18/19 History Lisinopril [Prinivil] 20 mg PO DAILY 03/18/19 03/18/19 History Pregabalin [Lyrica] 150 mg PO BID 03/18/19 03/18/19 History amLODIPine [Norvasc] 5 mg PO DAILY 03/18/19 03/18/19 History Allergies Allergy/AdvReac Type Severity Reaction Status Date / Time No Known Allergies Allergy Verified 03/18/19 13:17 Physical Exam Vitals: Vital Signs Temp Pulse Pulse Resp BP BP Pulse Ox 03/18/19 16:25 98 F 102 H 16 154/95 92 L 03/18/19 16:13 98.7 F 98 18 137/78 98 03/18/19 14:00 98 87 H 130/78 98 03/18/19 13:01 98.1 F 100 18 135/89 98 Intake and Output 03/18/19 03/18/19 03/18/19 06:59 14:59 22:59 Intake Total 180 Balance 180 Intake: Oral 180 Other: Voiding Method Urinal Weight 84.368 kg GEN. APPEARANCE: alert, in no apparent distress HEAD EXAM: atraumatic, normocephalic, normal inspection EYE EXAM: No pallor. No icterus ENT EXAM: normal exam, mucous membranes moist NECK EXAM: normal inspection. Absent: tenderness, meningismus, full ROM, lymphadenopathy RESPIRATORY EXAM: normal lung sounds bilaterally. No wheeze or crackles. CARDIOVASCULAR EXAM: regular rate, normal rhythm, normal heart sounds. No additional sounds. GI/ABDOMINAL EXAM: soft, normal bowel sounds. Absent: distended, tenderness, guarding, rebound, rigid EXTREMITIES EXAM: Left leg is laterally rotated. Neurovascularly intact. No pedal edema. NEUROLOGICAL EXAM: alert, oriented X3, no focal deficits. SKIN EXAM: warm, dry, intact, normal color. Absent: rash Results CBC & Chem 7: 03/18/19 14:08 03/18/19 14:08 Labs: Abnormal Lab Results - Last 24 Hours (Table) 03/18/19 03/18/19 Range/Units 14:08 14:08 WBC 11.9 H (3.8-10.6) k/uL RBC 4.24 L (4.30-5.90) m/uL Neutrophils # 10.6 H (1.3-7.7) k/uL Lymphocytes # 0.4 L (1.0-4.8) k/uL Sodium 123 L (137-145) mmol/L Chloride 91 L (98-107) mmol/L Carbon Dioxide 16 L (22-30) mmol/L Glucose 120 H (74-99) mg/dL ALT 18 L (21-72) U/L Thrombosis Risk Factor Assmnt - Choose All That Apply Any of the Below Risk Factors Present?: Yes Each Factor Represents 1 point: Age 41-60 years Thrombosis Risk Factor Assessment Total Risk Factor Score: 1 Thrombosis Risk Factor Assessment Level: Low Risk Assessment and Plan Assessment: ASSESSMENT Comminuted intertrochanteric fracture of the left hip Hypertension History of left ankle fracture with osteomyelitis COPD Chronic nicotine dependence PLAN: Patient is admitted for repair of his left hip fracture. Orthopedic on board and planning for surgery tomorrow morning, so patient to be kept nothing by mouth tonight. Patient has been restarted and his home medications. ID Dr. Callejas has been consulted as the patient has history of osteomyelitis and is currently on levofloxacin. Further recommendations depending on the progress of the patient.
[2019-03-18] MEDS: PREGABALIN 75 MG CAP PO SCH (20:36)
[2019-03-18] MEDS: LISINOPRIL 20 MG TAB PO SCH (20:36)
[2019-03-19] MEDS: MORPHINE SULFATE 4 MG/ML SYRINGE IV PRN ×3 (00:41→12:57)
[2019-03-19] MEDS: HYDROmorphone 0.5 MG/0.5 ML SYRINGE IVP PRN ×2 (03:56→19:40)
[2019-03-19] MEDS: SODIUM CHLORIDE 0.9% 1,000 ML IV SCH ×3 (04:48→15:23)
--- NOTE | 2019-03-19 07:23 | P.CNOR ---
History of Present Illness - HPI Consult date: 03/19/19 History of present illness: This is a 44-year-old male who is admitted for left hip fracture. Patient is seen and evaluated at bedside. Patient states that on 03/17/2019 he was using crutches and walking out of his garage at night when he lost his balance on some rocks that he didn't see. Patient states that after this fall he was unable to bear any weight on the left lower extremity. Patient denies any head injury or loss of consciousness. Patient states that he has a history of an open left ankle fracture that he had surgery for 1 year ago. Patient states that the left ankle became infected and he most recently had surgery for this in December 2018 for osteomyelitis. Patient states that he has had PICC lines for this in the past, but is currently on oral Levaquin. Patient states that his surgery was performed by Dr. Dickey. Patient states that he has been in a walking boot for this and using crutches for balance. Patient is a current every day smoker and his past medical history is significant for COPD and hypertension. Patient denies being on any anticoagulation. Patient denies any fever/chills, numbness, weakness, tingling, abdominal pain, shortness of breath or chest pain. Review of Systems See HPI. Past Medical History Past Medical History: COPD, Hypertension History of Any Multi-Drug Resistant Organisms: None Reported Past Surgical History: Orthopedic Surgery Additional Past Surgical History / Comment(s): jaw, wrist, L ankle Past Psychological History: Anxiety Smoking Status: Current every day smoker Past Alcohol Use History: Daily Past Drug Use History: None Reported - Past Family History Father Family Medical History: Cancer, Diabetes Mellitus Mother Family Medical History: Cancer Medications and Allergies Home Medications Medication Instructions Recorded Confirmed Type Lisinopril 20 mg PO DAILY 12/19/18 03/18/19 History Levofloxacin [Levaquin] 500 mg PO DAILY 03/18/19 03/18/19 History Lisinopril [Prinivil] 20 mg PO DAILY 03/18/19 03/18/19 History Pregabalin [Lyrica] 150 mg PO BID 03/18/19 03/18/19 History amLODIPine [Norvasc] 5 mg PO DAILY 03/18/19 03/18/19 History Allergies Allergy/AdvReac Type Severity Reaction Status Date / Time No Known Allergies Allergy Verified 03/18/19 13:17 Physical Examination On exam patient is resting comfortably in bed in no acute distress. Patient is alert and oriented 3. There is mild tenderness to palpation over the left hip. Skin is intact. There is no erythema or ecchymosis. Calves are soft and nontender bilaterally. Bilateral lower extremities are warm and well perfused. There is mild swelling about the left ankle with healed surgical scars present. Dorsalis pedis pulses are 2+ bilaterally. Neurovascular status and circulatory status are intact. Exams of the head, neck and bilateral upper extremities are within normal limits. Results X-rays of the left hip dated 03/18/2019 show an intertrochanteric fracture of the left femur. - Labs Labs: Abnormal Lab Results - Last 24 Hours (Table) 03/18/19 03/18/19 Range/Units 14:08 14:08 WBC 11.9 H (3.8-10.6) k/uL RBC 4.24 L (4.30-5.90) m/uL Neutrophils # 10.6 H (1.3-7.7) k/uL Lymphocytes # 0.4 L (1.0-4.8) k/uL Sodium 123 L (137-145) mmol/L Chloride 91 L (98-107) mmol/L Carbon Dioxide 16 L (22-30) mmol/L Glucose 120 H (74-99) mg/dL ALT 18 L (21-72) U/L H & H 03/18/19 Range/Units 14:08 Hgb 14.1 (13.0-17.5) gm/dL Hct 41.7 (39.0-53.0) % Coagulation 03/18/19 Range/Units 14:08 INR 0.9 (<1.2) Result Diagrams: 03/18/19 14:08 03/18/19 14:08 Assessment and Plan Assessment: COPD Hypertension (1) Closed intertrochanteric fracture of left femur Current Visit: Yes Status: Acute Code(s): S72.142A - DISPLACED INT ERTROCHANTERIC FRACTURE OF LEFT FEMUR, INIT SNOMED Code(s): 55617931 (2) Fall Current Visit: Yes Status: Acute Code(s): W19.XXXA - UNSPECIFIED FALL, INITIAL ENCOUNTER SNOMED Code(s): 0586005 Plan: 1. Patient is to be NPO. 2. Nonweightbearing to the left lower extremity. 3. Continue pain control. 4. Appreciate input from medicine. 5. Planning for closed reduction and intramedullary hip screw fixation of the left hip today pending medical clearance and patient consent. All patient questions and concerns were answered to the best of my ability.
[2019-03-19] MEDS ORDERED: LIDOCAINE 1% 20 ML VIAL (10MG/ML) FOR IV START INTRADERMA PRN (07:36)
[2019-03-19] MEDS ORDERED: HYDROmorphone 0.5 MG/0.5 ML SYRINGE IVP PRN (07:36)
[2019-03-19] MEDS: PREGABALIN 75 MG CAP PO SCH ×2 (07:36→19:41)
[2019-03-19] MEDS: LISINOPRIL 20 MG TAB PO SCH (07:36)
[2019-03-19] MEDS: amLODIPine 5 MG TAB PO SCH (07:36)
[2019-03-19] MEDS: LEVOFLOXACIN 500 MG TAB PO SCH (07:36)
[2019-03-19] MEDS ORDERED: ONDANSETRON 4 MG/2 ML VIAL IVP PRN (07:36)
[2019-03-19] MEDS ORDERED: HYDROcodone/APAP 5-325MG 1 EACH TAB PO PRN (07:58)
[2019-03-19] MEDS ORDERED: MAGNESIUM HYDROXIDE 2,400 MG/10 ML CUP PO PRN (07:58)
[2019-03-19] MEDS ORDERED: NALOXONE 0.4 MG/ML 1 ML VIAL IV PRN (07:58)
[2019-03-19] MEDS ORDERED: DIAZEPAM 5 MG TAB PO PRN (07:58)
[2019-03-19] MEDS ORDERED: ROCURONIUM BROMIDE 10 MG/ML 10 ML VIAL IV ONE (08:07)
[2019-03-19] MEDS ORDERED: GLYCOPYRROLATE 0.2 MG/ML 2 ML VIAL ONE (08:07)
[2019-03-19] MEDS ORDERED: PROPOFOL 10 MG/ML 20 ML VIAL IV ONE (08:07)
[2019-03-19] MEDS ORDERED: KETOROLAC 30 MG/ML 1 ML VIAL ONE (08:07)
[2019-03-19] MEDS ORDERED: NEOSTIGMINE 1 MG/ML 10 ML VIAL ONE (08:07)
[2019-03-19] MEDS ORDERED: HYDROmorphone (PF) 1 MG/ML ONE (08:07)
[2019-03-19] MEDS ORDERED: ONDANSETRON 4 MG/2 ML VIAL ONE (08:07)
[2019-03-19] MEDS ORDERED: SODIUM CHLORIDE 0.9% 1,000 ML IV ONE (08:07)
[2019-03-19] MEDS ORDERED: MIDAZOLAM 2 MG/2 ML VIAL ONE (08:07)
[2019-03-19] MEDS ORDERED: PHENYLEPHRINE-0.9% NACL SYG 1 MG/10 ML SYRINGE ONE (08:07)
[2019-03-19] MEDS ORDERED: LIDOCAINE 1% INJ 10MG/ML (20 ML MDV) ONE (08:07)
[2019-03-19] MEDS ORDERED: fentaNYL (PF) 50 MCG/ML 2 ML AMP ONE (08:07)
[2019-03-19] MEDS ORDERED: ceFAZolin 3,000 MG in SODIUM CHLORIDE 0.9% IRRIGATIO 3,000 ML IRRIGATION ONE (08:41)
[2019-03-19] MEDS ORDERED: LACTATED RINGERS 1,000 ML IV ONE ×2 (08:45→09:18)
[2019-03-19] MEDS: LACTATED RINGERS 1,000 ML IV SCH (09:09)
--- NOTE | 2019-03-19 09:36 | FL ---
FLUOROSCOPY 1 minute and 30 seconds of fluoroscopy time were utilized during dynamic hip pinning of the left hip. 2 images document the procedure.
--- NOTE | 2019-03-19 09:36 | P.OP ---
Date of Procedure: 03/19/19 Preoperative Diagnosis: Intratrochanteric fracture left hip Postoperative Diagnosis: Intertrochanteric fracture left hip Procedure(s) Performed: Close reduction and intramedullary nailing of the left hip Implants: [employer] intertan nail 125, 11.5 mm x 18 cm. [employer] Intertan integrated interlocking lag screw, 105 mm lag screw, 100 mm compression screw. [employer] L-P screw, 5.0 mm x 35 mm. Anesthesia: GETA Surgeon: Nelson Neumann Polo Coach #1: Lori Prado Estimated Blood Loss (ml): 100 Pathology: none sent Condition: stable Disposition: PACU Indications for Procedure: This is a 44-year-old patient that slipped and fell at home yesterday. He came to the emergency room and was diagnosed with a comminuted intratrochanteric fracture of his left hip. He has a history of having a severe left ankle fracture treated elsewhere. He had multiple surgeries including osteomyelitis of that left ankle. After reviewing x-rays and discussing the surgical nons urgical treatment options with him at length, I recommended a close reduction and intramedullary nailing of his left hip. I described the risks especially the risk of infection. I also discussed the severity of his fracture and the need for careful weightbearing postoperatively. He is aware of all this informed consent was obtained. Operative Findings: The operative findings are consistent with severely comminuted intratrochanteric fracture of his left hip Description of Procedure: The patient was seen in the preoperative area, consent was reviewed, and the operative site was marked with a skin marker. The patient was brought to the operating room and placed on the operating room table. Anesthesia was administered by the anesthesia department. 2 g of Ancef were administered intravenously. The patient was placed supine on the fracture table with the fractured extremity in traction boot. His other extremity was placed in a well leg stafford and his bony prominences were padded. A universal timeout was then performed which confirmed the patient's name, surgical site, ALLERGIES, and consent. Fracture reduction was performed with traction and adduction maneuver which was confirmed with fluoroscopy. After reduction was performed, the extremity was then prepped and draped in the usual sterile fashion. Utilizing fluoroscopy to identify the tip of the greater trochanter, a 3 cm incision was made just proximal to the greater trochanter. Utilizing a curved awl, the starting hole was created at the tip of the greater trochanter and centralized in the AP plane. These locations were confirmed by fluoroscopy. Guidewire was then inserted down the medullary canal. Sequentially reaming of the femur was performed to 13 mm distally and 17 mm proximally. After reaming, appropriate size nail was inserted over the guidewire. The nail was inserted to the appropriate depth and the guidewire was removed. The lag screw targeting device was placed in the jig and a small skin incision was made and the targeting guide was placed down to bone. Utilizing the distally threaded guidewire, the guidewire was placed in the appropriate position in the femoral head, both anterior, posterior and mediolateral. Next, the drill for the second screw was then placed through the guide and drilled to the appropriate depth. The guidewire was measured and the appropriate depth was then reamed. The final size screw was placed to the appropriate depth. Traction was released and the fracture site was compressed with the aid of the second screw. The proximal drill guide was then removed and the distal drill guide was then inserted in the jig. Skin incision was made down to bone and the distal drill guide was then placed. Distal hole was then drilled and measured to the appropriate depth. Distal screw was then placed. The entire jig was then removed and final fluoroscopic x-rays were obtained. The wounds were then irrigated copiously with saline solution. Fascia was closed with 0-Vicryl. Subcutaneous tissues were closed with 2-0 Vicryl and the skin was closed with peter. Sterile dressings were applied. The patient was transported to the recovery room in stable condition. The internal medicine physician assistant INDU Chua was required due the complexity of surgery the need for skilled surgical dressing maker for positioning draping retraction and fracture reduction.
--- NOTE | 2019-03-19 09:58 | XR ---
EXAMINATION TYPE: XR Hip Limited LT , ONE VIEW DATE OF EXAM ORDERED: 03/19/2019 HISTORY: post op. COMPARISON: None. FINDINGS: There has been a dynamic hip pinning of a fracture of the left hip. Position and alignment appears satisfactory. IMPRESSION: STATUS POST LEFT HIP PINNING.
[2019-03-19] MEDS: KETOROLAC 30 MG/ML 1 ML VIAL IVP SCH ×3 (10:51→23:22)
[2019-03-19] MEDS: NICOTINE 21MG/24HR PATCH TRANSDERM SCH (10:51)
[2019-03-19 11:45] LABS: Basophils % (A) 1 %; Eosinophils # (A) 0.1 k/uL (0-0.7); Eosinophils % (A) 1 %; HCT 36.4 % (39.0-53.0); HGB 11.9 gm/dL (13.0-17.5); Lymphocytes # (A) 0.6 k/uL (1.0-4.8); Lymphocytes % (A) 10 %; MCH 33.3 pg (25.0-35.0); MCHC 32.6 g/dL (31.0-37.0); MCV 102.1 fL (80.0-100.0); Macrocytosis Slight; Mean Platelet Volume 6.5; Monocytes # (A) 0.4 k/uL (0-1.0); Monocytes % (A) 6 %; Neutrophils % (A) 81 %; Platelet Count 171 k/uL (150-450); RBC 3.56 m/uL (4.30-5.90); RDW 13.3 % (11.5-15.5); WBC 6.2 k/uL (3.8-10.6)
[2019-03-19] MEDS: HYDROcodone/APAP 5-325MG 1 EACH TAB PO PRN ×2 (17:01→23:23)
[2019-03-19] MEDS: SENNOSIDES-DOCUSATE SODIUM 1 EACH TAB PO SCH (19:41)
--- NOTE | 2019-03-19 22:22 | P.PN ---
Subjective Progress Note Date: 03/19/19 Principal diagnosis: Left Hip fracture Mr. Franco is a 43-year-old male with a past medical history of hypertension, COPD, nicotine dependence, left ankle fracture with osteomyelitis currently on antibiotic coming to the hospital after having a fall last night. Patient had left ankle fracture and is currently on levofloxacin for osteomyelitis and using crutches to move around. Last night he tried to get up with the help of crutches and slipped and fell on his left side. Patient started to have pain in the left hip and came to the hospital for further evaluation. Patient states that he slipped and fell but did not have any chest pain or palpitations or dizziness at the time of fall. In the ER patient had an x-ray of his left hip showing comminuted intertrochanteric fracture of the left hip, so he is admitted for further management. On 03/19/19 -The patient had closed reduction and intramedullary nailing of the left hip done by Dr. Neumann today. Patient is resting in his bed comfortably. He complains of mild pain at the surgical site. Patient denies having any tingling or numbness in his left foot. On review of systems - Constitutional-denies having any fevers chills or riders Respiratory-no cough or difficulty breathing Cardiovascular-no chest pain or palpitations -no dysuria or hematuria Active Medications Acetaminophen (Tylenol Tab) 650 mg PO Q6HR PRN PRN Reason: Mild Pain or Fever > 100.5 Hydrocodone Bitart/Acetaminophen (Maple 5-325) 1 each PO Q6HR PRN PRN Reason: Pain Scale 1 to 5 Hydrocodone Bitart/Acetaminophen (Maple 5-325) 2 each PO Q6HR PRN PRN Reason: Pain Scale 6 to 10 Last Admin: 03/19/19 17:01 Dose: 2 each Documented by: Alprazolam (Xanax) 0.25 mg PO Q6HR PRN PRN Reason: Anxiety Amlodipine Besylate (Norvasc) 5 mg PO DAILY ROSITA Last Admin: 03/19/19 07:36 Dose: Not Given Documented by: Diazepam (Valium) 2.5 mg PO Q8HR PRN PRN Reason: Mild Spasms Hydromorphone HCl (Dilaudid) 0.5 mg IVP Q3HR PRN PRN Reason: Moderate Pain Last Admin: 03/19/19 19:40 Dose: 0.5 mg Documented by: Hydromorphone HCl (Dilaudid) 0.5 mg IVP Q5M PRN PRN Reason: Pain Control Stop: 03/20/19 07:37 Sodium Chloride (Saline 0.9%) 1,000 mls @ 75 mls/hr IV .[id number] REPLACED BY [facility] Last Admin: 03/19/19 15:23 Dose: Not Given Documented by: Lactated Ringer's (Lactated Ringers) 1,000 mls @ 20 mls/hr IV .Q24H REPLACED BY [facility] Last Admin: 03/19/19 09:09 Dose: Not Given Documented by: Sodium Chloride (Saline 0.9%) 1,000 mls @ 65 mls/hr IV .[id number] REPLACED BY [facility] Last Admin: 03/19/19 09:09 Dose: Not Given Documented by: Ibuprofen (Motrin) 400 mg PO Q6HR PRN PRN Reason: Mild Pain or Fever > 100.5 Ketorolac Tromethamine (Toradol) 30 mg IVP Q6HR REPLACED BY [facility] Stop: 03/21/19 12:01 Last Admin: 03/19/19 17:57 Dose: Not Given Documented by: Levofloxacin (Levaquin) 500 mg PO DAILY REPLACED BY [facility] Last Admin: 03/19/19 07:36 Dose: Not Given Documented by: Lidocaine HCl (.Xylocaine 1% Inj (10mg/Ml) For Iv Start) 0.1 ml INTRADERMA PER PROTOCOL PRN PRN Reason: IV Start Lisinopril (Zestril) 20 mg PO DAILY REPLACED BY [facility] Last Admin: 03/19/19 07:36 Dose: Not Given Documented by: Magnesium Hydroxide (Milk Of Magnesia) 2,400 mg PO DAILY PRN PRN Reason: Constipation Morphine Sulfate (Morphine Sulfate (Inj)) 4 mg IV Q4HR PRN PRN Reason: Severe Pain Last Admin: 03/19/19 12:57 Dose: 4 mg Documented by: Naloxone HCl (Narcan) 0.2 mg IV Q2M PRN PRN Reason: Opioid Reversal Nicotine (Habitrol 21mg/24hr Patch) 1 patch TRANSDERM DAILY REPLACED BY [facility] Last Admin: 03/19/19 10:51 Dose: 1 patch Documented by: Ondansetron HCl (Zofran) 4 mg IVP ONCE PRN PRN Reason: Nausea And Vomiting Stop: 03/20/19 07:37 Pregabalin (Lyrica) 150 mg PO BID REPLACED BY [facility] Last Admin: 03/19/19 19:41 Dose: 150 mg Documented by: Rivaroxaban (Xarelto) 10 mg PO DAILY REPLACED BY [facility] Senna/Docusate Sodium (Senokot-S) 2 each PO HS REPLACED BY [facility] Last Admin: 03/19/19 19:41 Dose: 2 each Documented by: Objective - Vital Signs Vital signs: Vital Signs Temp 98.4 F 03/19/19 14:35 Pulse 82 03/19/19 14:35 Resp 16 03/19/19 14:35 BP 112/75 03/19/19 14:35 Pulse Ox 94 L 03/19/19 14:35 Intake & Output 03/18/19 03/19/19 03/19/19 18:59 06:59 18:59 Intake Total 180 2331 Output Total 1400 100 Balance 180 -1400 2231 Weight 84.368 kg Intake: IV 1651 Oral 180 680 Output: Urine 1400 Estimated Blood Loss 100 Other: Voiding Method Urinal Urinal - Exam GEN. APPEARANCE: alert, in no apparent distress HENT - no pallor. No icterus. RESPIRATORY EXAM: normal lung sounds bilaterally. No wheeze or crackles. CARDIOVASCULAR EXAM: regular rate, normal rhythm, normal heart sounds. No ad ditional sounds. GI/ABDOMINAL EXAM: soft, normal bowel sounds. Absent: distended, tenderness, guarding, rebound, rigid EXTREMITIES EXAM: Left leg - Neurovascularly intact. No pedal edema. - Labs CBC & Chem 7: 03/19/19 11:35 03/18/19 14:08 Labs: Abnormal Lab Results - Last 24 Hours (Table) 03/19/19 Range/Units 11:35 RBC 3.56 L (4.30-5.90) m/uL Hgb 11.9 L (13.0-17.5) gm/dL Hct 36.4 L (39.0-53.0) % MCV 102.1 H (80.0-100.0) fL Lymphocytes # 0.6 L (1.0-4.8) k/uL Assessment and Plan Assessment: ASSESSMENT Comminuted intertrochanteric fracture of the left hip - S/p closed reduction and intramedullary nailing Acute blood loss anemia- s/p surgery Hypertension History of left ankle fracture with osteomyelitis COPD Chronic nicotine dependence PLAN:. Patient had closed reduction and intramedullary nailing of the left hip done. Postop hemoglobin has been stable. Patient's blood pressure has been doing okay. He is on Xarelto for anticoagulation. Will have PT OT evaluate him for therapy. Patient has been restarted and his home medications. ID Dr. Callejas has been consulted as the patient has history of osteomyelitis and is currently on levofloxacin. Further recommendations depending on the progress of the patient.
[2019-03-20] MEDS: KETOROLAC 30 MG/ML 1 ML VIAL IVP SCH ×3 (04:46→17:16)
[2019-03-20] MEDS: HYDROcodone/APAP 5-325MG 1 EACH TAB PO PRN ×3 (05:05→22:15)
[2019-03-20] MEDS: SODIUM CHLORIDE 0.9% 1,000 ML IV SCH ×4 (06:20→21:31)
[2019-03-20] MEDS ORDERED: ASPIRIN 325 MG TAB PO SCH (07:00)
--- NOTE | 2019-03-20 08:31 | P.PN ---
Subjective Progress Note Date: 03/20/19 This is a 44-year-old male who is status post closed reduction and intramedullary nailing of the left hip. This is postoperative day #1 and patient is seen and evaluated at bedside. Patient states that this pain is well-controlled. Patient states that he has not worked with physical therapy yet. Patient denies any new symptoms or complaints today. Patient denies any fever/chills, numbness, weakness, tingling, abdominal pain, shortness of breath or chest pain. Objective - Vital Signs Vital signs: Vital Signs Temp 98.6 F 03/20/19 06:59 Pulse 96 03/20/19 06:59 Resp 15 03/20/19 06:59 BP 100/67 03/20/19 06:59 Pulse Ox 98 03/20/19 06:59 Intake & Output 03/19/19 03/20/19 03/20/19 18:59 06:59 18:59 Intake Total 2331 Output Total 100 700 Balance 2231 -700 Intake: IV 1651 Oral 680 Output: Urine 700 Estimated Blood Loss 100 Other: Voiding Method Urinal - Exam Vital signs are stable. Patient is in no acute distress and is alert and oriented 3. Calf is soft and nontender to palpation. Dressing is clean, dry, and intact. Patient has full foot and ankle motion without pain or difficulty. Neurovascular status and circulatory status are intact. - Labs CBC & Chem 7: 03/19/19 11:35 03/18/19 14:08 Labs: Abnormal Lab Results - Last 24 Hours (Table) 03/19/19 Range/Units 11:35 RBC 3.56 L (4.30-5.90) m/uL Hgb 11.9 L (13.0-17.5) gm/dL Hct 36.4 L (39.0-53.0) % MCV 102.1 H (80.0-100.0) fL Lymphocytes # 0.6 L (1.0-4.8) k/uL Assessment and Plan Assessment: COPD Hypertension (1) Closed intertrochanteric fracture of left femur Current Visit: Yes Status: Acute Code(s): S72.142A - DISPLACED INTERTROCHANTERIC FRACTURE OF LEFT FEMUR, INIT SNOMED Code(s): 88691623 (2) Fall Current Visit: Yes Status: Acute Code(s): W19.XXXA - UNSPECIFIED FALL, INITIAL ENCOUNTER SNOMED Code(s): 4516149 Plan: Continue routine postop care and pain control. Continue anticoagulation with Xarelto. Strictly nonweightbearing to the left lower extremity. Daily dressing changes. Veena to be removed 10-14 days postoperatively. Appreciate input from medicine. Possible discharge home with homecare vs ECF in the next 24-48 hours.
[2019-03-20] MEDS: LEVOFLOXACIN 500 MG TAB PO SCH (08:55)
[2019-03-20] MEDS: RIVAROXABAN 10 MG TAB PO SCH (08:55)
[2019-03-20] MEDS: NICOTINE 21MG/24HR PATCH TRANSDERM SCH (08:55)
[2019-03-20] MEDS: PREGABALIN 75 MG CAP PO SCH ×2 (08:56→21:34)
[2019-03-20] MEDS: MORPHINE SULFATE 4 MG/ML SYRINGE IV PRN (09:01)
--- NOTE | 2019-03-20 10:13 | P.CONS ---
History of Present Illness - Reason for Consult Consult date: 03/20/19 Left ankle infection - History of Present Illness This is a 44-year-old male patient well known to ID service. In February 2018 he had open ankle fracture on the left from a trampoline accident. He was transferred to [facility] and underwent ORIF with Dr. Dickey. In August 2018 he had a slip and fall and twisted the left ankle and went to [facility] and had a washout done at that time. In December 2018 patient had increasing pain with found to have osteomyelitis and hardware was removed at [facility]. He has followed up with Dr. Callejas in the office for osteomyelitis, chronic, with plan for lifelong Levaquin per patient report. Wound culture was positive for Serratia marcescens. He did complete course of IV antibiotics and PICC line was removed. On March 17 patient had a slip and fall landing on the left hip while he was walking with crutches. He came into [facility] for evaluation found to have a left hip fracture status post IM nail done yesterday with Dr. Neumann. Patient states that he is feeling better since when he came in but his pain is still a #8. He is considering subacute rehab at discharge. Regarding the left ankle, he states that he may undergo bone fusion and if that is not successful amputation but currently on lifelong antibiotic therapy. He is currently strict nonweightbearing on the left side. He is waiting to be evaluated by PT and concerned that he does have 3 steps to get into his home. Review of Systems Constitutional: Denies chills, Denies fatigue, Denies fever, Denies lethargy, Denies malaise, Denies poor appetite, Denies weight loss Eyes: denies blurred vision, denies pain Ears, nose, mouth and throat: Denies dysphagia, Denies headache, Denies sore throat, Denies vertigo Cardiovascular: Denies chest pain, Denies decreased exercise tolerance, Denies dyspnea on exertion, Denies lightheadedness, Denies shortness of breath, Denies syncope Respiratory: Denies cough, Denies cough with sputum, Denies dyspnea, Denies excessive sputum, Denies hemoptysis, Denies home oxygen, Denies wheezing Gastrointestinal: Denies abdominal pain, Denies constipation, Denies diarrhea, Denies loss of appetite, Denies nausea, Denies vomiting Genitourinary: Denies dysuria, Denies urinary retention Musculoskeletal: Reports frequent falls, Reports gait dysfunction, Denies myalgias Musculoskeletal: left: hip pain Integumentary: Reports wounds, Denies pruritus, Denies rash Neurological: Denies change in mentation, Denies change in speech, Denies numbness, Denies vertigo, Denies weakness Psychiatric: Denies anxiety, Denies depression Endocrine: Denies fatigue, Denies weight change Past Medical History Past Medical History: COPD, Hypertension Additional Past Medical History / Comment(s): Chronic osteomyelitis left ankle History of Any Multi-Drug Resistant Organisms: None Reported Past Surgical History: Orthopedic Surgery Additional Past Surgical History / Comment(s): jaw, wrist, L ankle ORIF, followed by washout, followed by hardware removal, left hip IM nail Past Psychological History: Anxiety Smoking Status: Current every day smoker Past Alcohol Use History: Daily Additional Past Alcohol Use History / Comment(s): Patient is a smoker of one pack per day for 30 years. He denies any marijuana or illicit drug use. He drinks alcohol occasionally. He lives at home with his girlfriend and [id number]. 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 Past Drug Use History: None Reported - Past Family History Father Family Medical History: Cancer, Diabetes Mellitus Mother Family Medical History: Cancer Medications and Allergies Home Medications Medication Instructions Recorded Confirmed Type Lisinopril 20 mg PO DAILY 12/19/18 03/18/19 History Levofloxacin [Levaquin] 500 mg PO DAILY 03/18/19 03/18/19 History Lisinopril [Prinivil] 20 mg PO DAILY 03/18/19 03/18/19 History Pregabalin [Lyrica] 150 mg PO BID 03/18/19 03/18/19 History amLODIPine [Norvasc] 5 mg PO DAILY 03/18/19 03/18/19 History Allergies Allergy/AdvReac Type Severity Reaction Status Date / Time No Known Allergies Allergy Verified 03/18/19 13:17 Physical Exam Vitals: Vital Signs Temp Pulse Pulse Pulse Resp BP Pulse Ox 03/20/19 06:59 98.6 F 96 15 100/67 98 03/20/19 03:07 98.0 F 83 19 107/65 95 03/20/19 00:05 16 03/19/19 20:00 16 03/19/19 19:53 98.0 F 78 17 104/67 97 03/19/19 14:35 98.4 F 82 16 112/75 94 L 03/19/19 12:30 87 114/73 93 L 03/19/19 12:15 88 120/82 93 L 03/19/19 12:00 75 106/72 95 03/19/19 11:45 89 105/71 95 03/19/19 11:30 78 98/67 93 L 03/19/19 11:15 87 107/68 93 L 03/19/19 11:00 84 121/74 94 L 03/19/19 10:45 83 127/81 91 L 03/19/19 10:30 98.8 F 83 16 119/84 91 L 03/19/19 10:17 75 16 117/81 96 Intake and Output 03/19/19 03/20/19 03/20/19 22:59 06:59 14:59 Output Total 525 175 Balance -525 -175 Output: Urine 525 175 Other: Voiding Method Urinal Gen: This is a 44-year-old male. He is resting in bed appears to be comfortable in no acute distress. HEENT: Head is atraumatic, normocephalic. Pupils equal, round. Sclerae is anict rolando. Conjunctiva pink. Mucous membranes of the mouth are moist. Dentition is in fair order. NECK: Supple. No JVD. No lymphadenopathy. No thyromegaly. LUNGS: Clear to auscultation. No wheezes or rhonchi. No intercostal retractions. HEART: Regular rate and rhythm. No murmur. ABDOMEN: Soft. Bowel sounds are present. No masses. No tenderness. EXTREMITIES: No pedal edema. No calf tenderness. The deformity noted to the left ankle with multiple surgical scars that are healed. Area is warm to the touch. Dressing in place to the left hip with no breakthrough leading or drainage. NEUROLOGICAL: Patient is awake, alert and oriented x3. Cranial nerves 2 through 12 are grossly intact. Results Results: Laboratory Tests Range/Units 03/18/19 03/18/19 03/18/19 14:08 14:08 14:08 WBC (3.8-10.6) k/uL 11.9 H RBC (4.30-5.90) m/uL 4.24 L Hgb (13.0-17.5) gm/dL 14.1 Hct (39.0-53.0) % 41.7 MCV (80.0-100.0) fL 98.1 MCH (25.0-35.0) pg 33.3 MCHC (31.0-37.0) g/dL 34.0 RDW (11.5-15.5) % 13.2 Plt Count (150-450) k/uL 219 Neutrophils % % 90 Lymphocytes % % 3 Monocytes % % 4 Eosinophils % % 1 Basophils % % 1 Neutrophils # (1.3-7.7) k/uL 10.6 H Lymphocytes # (1.0-4.8) k/uL 0.4 L Monocytes # (0-1.0) k/uL 0.5 Eosinophils # (0-0.7) k/uL 0.1 Basophils # (0-0.2) k/uL 0.1 Macrocytosis PT (9.0-12.0) sec 9.5 INR (<1.2) 0.9 APTT (22.0-30.0) sec 27.2 Sodium (137-145) mmol/L 123 L Potassium (3.5-5.1) mmol/L 5.1 Chloride (98-107) mmol/L 91 L Carbon Dioxide (22-30) mmol/L 16 L Anion Gap mmol/L 16 BUN (9-20) mg/dL 11 Creatinine (0.66-1.25) mg/dL 0.76 Est GFR (CKD-EPI)AfAm (>60 ml/min/1.73 sqM) >90 Est GFR (CKD-EPI)NonAf (>60 ml/min/1.73 sqM) >90 Glucose (74-99) mg/dL 120 H Calcium (8.4-10.2) mg/dL 9.8 Total Bilirubin (0.2-1.3) mg/dL 0.7 AST (17-59) U/L 27 ALT (21-72) U/L 18 L Alkaline Phosphatase (38-126) U/L 64 Total Protein (6.3-8.2) g/dL 7.6 Albumin (3.5-5.0) g/dL 4.4 Range/Units 10/13/19 11:35 WBC (3.8-10.6) k/uL 6.2 RBC (4.30-5.90) m/uL 3.56 L Hgb (13.0-17.5) gm/dL 11.9 L Hct (39.0-53.0) % 36.4 L MCV (80.0-100.0) fL 102.1 H MCH (25.0-35.0) pg 33.3 MCHC (31.0-37.0) g/dL 32.6 RDW (11.5-15.5) % 13.3 Plt Count (150-450) k/uL 171 Neutrophils % % 81 Lymphocytes % % 10 Monocytes % % 6 Eosinophils % % 1 Basophils % % 1 Neutrophils # (1.3-7.7) k/uL 5.0 Lymphocytes # (1.0-4.8) k/uL 0.6 L Monocytes # (0-1.0) k/uL 0.4 Eosinophils # (0-0.7) k/uL 0.1 Basophils # (0-0.2) k/uL 0.0 Macrocytosis Slight PT (9.0-12.0) sec INR (<1.2) APTT (22.0-30.0) sec Sodium (137-145) mmol/L Potassium (3.5-5.1) mmol/L Chloride (98-107) mmol/L Carbon Dioxide (22-30) mmol/L Anion Gap mmol/L BUN (9-20) mg/dL Creatinine (0.66-1.25) mg/dL Est GFR (CKD-EPI)AfAm (>60 ml/min/1.73 sqM) Est GFR (CKD-EPI)NonAf (>60 ml/min/1.73 sqM) Glucose (74-99) mg/dL Calcium (8.4-10.2) mg/dL Total Bilirubin (0.2-1.3) mg/dL AST (17-59) U/L ALT (21-72) U/L Alkaline Phosphatase (38-126) U/L Total Protein (6.3-8.2) g/dL Albumin (3.5-5.0) g/dL CBC & Chem 7: 03/19/19 11:35 03/18/19 14:08 Labs: Abnormal Lab Results - Last 24 Hours (Table) 03/19/19 Range/Units 11:35 RBC 3.56 L (4.30-5.90) m/uL Hgb 11.9 L (13.0-17.5) gm/dL Hct 36.4 L (39.0-53.0) % MCV 102.1 H (80.0-100.0) fL Lymphocytes # 0.6 L (1.0-4.8) k/uL Assessment and Plan Plan: This is a 44-year-old male who presented to the hospital after a fall landing on the left hip with left hip fracture status post IM nail. Patient has history of chronic osteomyelitis of the left ankle and is on oral antibiotic therapy with Levaquin which will be continued at the time of his discharge. Continue supportive care. Further recommendations patient progresses. The above dictated assessment and findings were discussed with Dr. Callejas. The impression and plan of care have been directed as dictated. Isabela An nurse practitioner acting as scribe for Dr. Callejas.
--- NOTE | 2019-03-20 15:05 | CDI ---
Documentation Clarification Form Date: 03/20/2019 2:56:30 PM From: Yuli YingAguirreKRYSTAL, CCDS Admit Date: 03/18/2019 2:40:00 PM Patient Name: Deuce Franco Visit Number: [id number] Discharge Date: ATTENTION: The Clinical Documentation Specialists (CDI) and [facility] Coding Staff appreciate your assistance in clarifying documentation. Please respond to the clarification below the line at the bottom and electronically sign. The CDI & [facility] Coding staff will review the response and follow-up if needed. Please note: Queries are made part of the Legal Health Record. If you have any questions, please contact the author of this message via ITS. Dr. Nhung Ross: Per the 03/19 medical management progress note: acute blood loss anemia status post surgery. Patients Admitting Diagnosis: Comminuted intertrochanteric fracture of the left hip status post closed reduction & intramedullary nailing. Post-Operative Diagnosis: Same Procedure performed: Closed reduction & intramedullary nailing of the left hip. History/Risk Factors: Hypertension, COPD, Recent left ankle fracture with osteomyelitis & chronic nicotine dependence. Clinical Indicators: Presented with fracture as above. LABS: Hgb 14.1 11.9 Treatment: IV Ms, IV Dilaudid, IV fluids, IV Cefazolin In order to accurately reflect this patients severity of illness, please clarify if the post-operative diagnosis of acute blood loss anemia is: An expected post-procedural or post-surgical condition, please specify cause if known. An unexpected post-procedural or post-surgical condition related to surgical care (a complication of care) An unexpected post-procedural or post-surgical condition, related to the patients underlying medical comorbidities, please specify cause if known. Other, please specify ____ Unable to determine (Last Revision: September 2018) An expected post-procedural or post-surgical condition MTDD
[2019-03-20] MEDS: amLODIPine 5 MG TAB PO SCH (16:32)
[2019-03-20] MEDS: LISINOPRIL 20 MG TAB PO SCH (16:33)
[2019-03-20] MEDS: HYDROmorphone 0.5 MG/0.5 ML SYRINGE IVP PRN (16:37)
[2019-03-20] MEDS: LACTATED RINGERS 1,000 ML IV SCH (17:26)
[2019-03-20 19:12] LABS: African American GFR (CKD) >90 (>60 ml/min/1.73 sqM); Anion Gap 12 mmol/L; Blood Urea Nitrogen 15 mg/dL (9-20); Calcium 8.4 mg/dL (8.4-10.2); Carbon Dioxide 19 mmol/L (22-30); Chloride 99 mmol/L (98-107); Glucose 108 mg/dL (74-99); Potassium 4.1 mmol/L (3.5-5.1); Sodium 130 mmol/L (137-145)
[2019-03-20] MEDS: SENNOSIDES-DOCUSATE SODIUM 1 EACH TAB PO SCH (21:34)
--- NOTE | 2019-03-20 21:58 | P.CON ---
Consult Note - . Consult date: 03/20/19 Assessment/Plan:: This is a 44-year-old male patient well known to ID service. In February 2018 he had open ankle fracture on the left from a trampoline accident. He was transferred to [facility] and underwent ORIF with Dr. Dickey. In August 2018 he had a slip and fall and twisted the left ankle and went to [facility] and had a washout done at that time. In December 2018 patient had increasing pain with found to have osteomyelitis and hardware was removed at [facility]. He has followed up with Dr. Callejas in the office for osteomyelitis, chronic, with plan for lifelong Levaquin per patient report. Wound culture was positive for Jaelyn tia marcescens. He did complete course of IV antibiotics and PICC line was removed. On March 17 patient had a slip and fall landing on the left hip while he was walking with crutches. He came into [facility] for evaluation found to have a left hip fracture status post IM nail done yesterday with Dr. Neumann. Patient states that he is feeling better since when he came in but his pain is still a #8. He is considering subacute rehab at discharge. Regarding the left ankle, he states that he may undergo bone fusion and if that is not successful amputation but currently on lifelong antibiotic therapy. He is currently strict nonweightbearing on the left side. He is waiting to be evaluated by PT and concerned that he does have 3 steps to get into his home. Please see the consult note is dictated by nurse practitioner Mrs. Isabela An. This pleasant gentleman is well-known to this service where he has been followed because of the significant infection to his left ankle. He's had extensive reconstruction and is now having a marked improvement. He completed his course of outpatient intravenous antibiotic therapy has been transitioned to oral antibiotic therapy for some chronic infection. He is tolerating that well. As noted he suffered a fall resulting in the left hip fracture that required the intramedullary nailing that has now been completed. He is definitely feeling somewhat better and is not having fevers or chills. The patient remained on his Levaquin therapy for the chronic infection to the left ankle area that is having some marked improvement. Last data from the orthopedic trauma surgeon revealed that the ankle and stabilized there were no plans for any further surgical intervention in there was no plans for amputation. The patient will remain on his Levaquin therapy which we ensure as instituted during this time. The left hip does not appear to be infected shall monitor. I agree with evaluation, assessment and plan as dictated by nurse practitioner Mrs. Isabela An.
--- NOTE | 2019-03-20 22:29 | P.PN ---
Subjective Progress Note Date: 03/20/19 Principal diagnosis: Left Hip fracture Mr. Franco is a 43-year-old male with a past medical history of hypertension, COPD, nicotine dependence, left ankle fracture with osteomyelitis currently on antibiotic coming to the hospital after having a fall last night. Patient had left ankle fracture and is currently on levofloxacin for osteomyelitis and using crutches to move around. Last night he tried to get up with the help of crutches and slipped and fell on his left side. Patient started to have pain in the left hip and came to the hospital for further evaluation. Patient states that he slipped and fell but did not have any chest pain or palpitations or dizziness at the time of fall. In the ER patient had an x-ray of his left hip showing comminuted intertrochanteric fracture of the left hip, so he is admitted for further management. On 03/20/19 -The patient had closed reduction and intramedullary nailing of the left hip done by Dr. Neumann yesterday. Patient is resting in a recliner by the bed side comfortably. Patient denies having any tingling or numbness in his left foot. On review of systems - Constitutional-denies having any fevers chills or riders Respiratory-no cough or difficulty breathing Cardiovascular-no chest pain or palpitations -no dysuria or hematuria Active Medications Acetaminophen (Tylenol Tab) 650 mg PO Q6HR PRN PRN Reason: Mild Pain or Fever > 100.5 Hydrocodone Bitart/Acetaminophen ([place] 5-325) 1 each PO Q6HR PRN PRN Reason: Pain Scale 1 to 5 Hydrocodone Bitart/Acetaminophen ([place] 5-325) 2 each PO Q6HR PRN PRN Reason: Pain Scale 6 to 10 Last Admin: 03/20/19 22:15 Dose: 2 each Documented by: Alprazolam (Xanax) 0.25 mg PO Q6HR PRN PRN Reason: Anxiety Amlodipine Besylate (Norvasc) 5 mg PO DAILY ROISTA Last Admin: 03/20/19 16:32 Dose: Not Given Documented by: Diazepam (Valium) 2.5 mg PO Q8HR PRN PRN Reason: Mild Spasms Hydromorphone HCl (Dilaudid) 0.5 mg IVP Q3HR PRN PRN Reason: Moderate Pain Last Admin: 03/20/19 16:37 Dose: 0.5 mg Documented by: Sodium Chloride (Saline 0.9%) 1,000 mls @ 75 mls/hr IV .[id number] [facility] Last Admin: 03/20/19 21:31 Dose: Not Given Documented by: Lactated Ringer's (Lactated Ringers) 1,000 mls @ 20 mls/hr IV .Q24H [facility] Last Admin: 03/20/19 17:26 Dose: Not Given Documented by: Sodium Chloride (Saline 0.9%) 1,000 mls @ 65 mls/hr IV .[id number] [facility] Last Admin: 03/20/19 17:26 Dose: Not Given Documented by: Ibuprofen (Motrin) 400 mg PO Q6HR PRN PRN Reason: Mild Pain or Fever > 100.5 Ketorolac Tromethamine (Toradol) 30 mg IVP Q6HR [facility] Stop: 03/21/19 12:01 Last Admin: 03/20/19 17:16 Dose: 30 mg Documented by: Levofloxacin (Levaquin) 500 mg PO DAILY [facility] Last Admin: 03/20/19 08:55 Dose: 500 mg Documented by: Lidocaine HCl (.Xylocaine 1% Inj (10mg/Ml) For Iv Start) 0.1 ml INTRADERMA PER PROTOCOL PRN PRN Reason: IV Start Lisinopril (Zestril) 20 mg PO DAILY [facility] Last Admin: 03/20/19 16:33 Dose: Not Given Documented by: Magnesium Hydroxide (Milk Of Magnesia) 2,400 mg PO DAILY PRN PRN Reason: Constipation Morphine Sulfate (Morphine Sulfate (Inj)) 4 mg IV Q4HR PRN PRN Reason: Severe Pain Last Admin: 03/20/19 09:01 Dose: 4 mg Documented by: Naloxone HCl (Narcan) 0.2 mg IV Q2M PRN PRN Reason: Opioid Reversal Nicotine (Habitrol 21mg/24hr Patch) 1 patch TRANSDERM DAILY [facility] Last Admin: 03/20/19 08:55 Dose: 1 patch Documented by: Pregabalin (Lyrica) 150 mg PO BID [facility] Last Admin: 03/20/19 21:34 Dose: 150 mg Documented by: Rivaroxaban (Xarelto) 10 mg PO DAILY [facility] Last Admin: 03/20/19 08:55 Dose: 10 mg Documented by: Senna/Docusate Sodium (Senokot-S) 2 each PO HS ROSITA Last Admin: 03/20/19 21:34 Dose: 2 each Documented by: Objective - Vital Signs Vital signs: Vital Signs Temp 98.7 F 03/20/19 14:18 Pulse 92 03/20/19 14:18 Resp 15 03/20/19 14:18 BP 102/67 03/20/19 14:18 Pulse Ox 95 03/20/19 14:18 Intake & Output 03/19/19 03/20/19 03/20/19 18:59 06:59 18:59 Intake Total 2331 660 Output Total 100 700 600 Balance 2231 -700 60 Intake: IV 1651 Oral 680 660 Output: Urine 700 600 Estimated Blood Loss 100 Other: Voiding Method Urinal - Exam GEN. APPEARANCE: alert, in no apparent distress HENT - no pallor. No icterus. RESPIRATORY EXAM: normal lung sounds bilaterally. No wheeze or crackles. CARDIOVASCULAR EXAM: regular rate, normal rhythm, normal heart sounds. No additional sounds. GI/ABDOMINAL EXAM: soft, normal bowel sounds. Absent: distended, tenderness, g uarding, rebound, rigid EXTREMITIES EXAM: Left leg - Neurovascularly intact. No pedal edema. - Labs CBC & Chem 7: 03/19/19 11:35 03/20/19 18:47 Assessment and Plan Assessment: ASSESSMENT Comminuted intertrochanteric fracture of the left hip - S/p closed reduction and intramedullary nailing Acute blood loss anemia- s/p surgery - Stable Hypertension History of left ankle fracture with osteomyelitis COPD Chronic nicotine dependence PLAN:. Patient had closed reduction and intramedullary nailing of the left hip done on 03/19/19 . Postop hemoglobin has been stable. Patient's blood pressure has been doing okay. He is on Xarelto for anticoagulation. Ongoing PT /OT . ID Dr. Callejas has been consulted as the patient has history of osteomyelitis and to be continued on levofloxacin. Further recommendations depending on the progress of the patient.Anticipate discharge in 24- 48 hrs.
[2019-03-21] MEDS: KETOROLAC 30 MG/ML 1 ML VIAL IVP SCH ×3 (00:34→11:09)
[2019-03-21] MEDS: SODIUM CHLORIDE 0.9% 1,000 ML IV SCH ×2 (05:53→09:19)
[2019-03-21 06:49] LABS: Basophils % (A) 1 %; Eosinophils # (A) 0.1 k/uL (0-0.7); Eosinophils % (A) 2 %; HCT 33.7 % (39.0-53.0); HGB 11.3 gm/dL (13.0-17.5); Lymphocytes # (A) 0.7 k/uL (1.0-4.8); Lymphocytes % (A) 12 %; MCH 34.1 pg (25.0-35.0); MCHC 33.4 g/dL (31.0-37.0); Macrocytosis Slight; Mean Platelet Volume 6.8; Monocytes # (A) 0.3 k/uL (0-1.0); Monocytes % (A) 5 %; Neutrophils # (A) 4.7 k/uL (1.3-7.7); Neutrophils % (A) 79 %; Platelet Count 153 k/uL (150-450); RDW 13.1 % (11.5-15.5)
[2019-03-21] MEDS: HYDROcodone/APAP 5-325MG 1 EACH TAB PO PRN ×2 (07:30→16:38)
[2019-03-21] MEDS: LEVOFLOXACIN 500 MG TAB PO SCH (09:15)
[2019-03-21] MEDS: amLODIPine 5 MG TAB PO SCH (09:15)
[2019-03-21] MEDS: PREGABALIN 75 MG CAP PO SCH (09:15)
[2019-03-21] MEDS: NICOTINE 21MG/24HR PATCH TRANSDERM SCH (09:15)
[2019-03-21] MEDS: RIVAROXABAN 10 MG TAB PO SCH (09:15)
[2019-03-21] MEDS: LISINOPRIL 20 MG TAB PO SCH (09:16)
[2019-03-21] MEDS: LACTATED RINGERS 1,000 ML IV SCH (09:19)
--- NOTE | 2019-03-21 10:03 | P.PN ---
Subjective Progress Note Date: 03/21/19 This is a 44-year-old male who is status post closed reduction and intramedullary nailing of the left hip. This is postoperative day #2 and patient is seen and evaluated at bedside with Dr. Nelson Neumann. Patient states that his pain is well-controlled. Patient states that he has been working with physical therapy and was able to climb stairs while keeping weight off of his left lower extremity. Patient denies any new symptoms or complaints today. Patient denies any fever/chills, numbness, weakness, tingling, abdominal pain, shortness of breath or chest pain. Objective - Vital Signs Vital signs: Vital Signs Temp 99.1 F 03/21/19 07:13 Pulse 67 03/21/19 07:13 Resp 17 03/21/19 07:13 BP 100/67 03/21/19 07:13 Pulse Ox 93 L 03/21/19 07:13 Intake & Output 03/20/19 03/21/19 03/21/19 18:59 06:59 18:59 Intake Total 660 180 Output Total 600 650 Balance 60 -650 180 Intake: Oral 660 180 Output: Urine 600 650 Other: # Voids 1 - Exam Vital signs are stable. Patient is in no acute distress and is alert and oriented 3. Calf is soft and nontender to palpation. Dressing is clean and intact with mild bloody drainage present. Patient has full foot and ankle motio n without pain or difficulty. Neurovascular status and circulatory status are intact. - Labs CBC & Chem 7: 03/21/19 06:23 03/20/19 18:47 Labs: Abnormal Lab Results - Last 24 Hours (Table) 03/20/19 03/21/19 Range/Units 18:47 06:23 RBC 3.30 L (4.30-5.90) m/uL Hgb 11.3 L (13.0-17.5) gm/dL Hct 33.7 L (39.0-53.0) % MCV 102.0 H (80.0-100.0) fL Lymphocytes # 0.7 L (1.0-4.8) k/uL Sodium 130 L (137-145) mmol/L Carbon Dioxide 19 L (22-30) mmol/L Glucose 108 H (74-99) mg/dL Assessment and Plan Assessment: COPD Hypertension (1) Closed intertrochanteric fracture of left femur Current Visit: Yes Status: Acute Code(s): S72.142A - DISPLACED INTERTROCHANTERIC FRACTURE OF LEFT FEMUR, INIT SNOMED Code(s): 06931271 (2) Fall Current Visit: Yes Status: Acute Code(s): W19.XXXA - UNSPECIFIED FALL, INITIAL ENCOUNTER SNOMED Code(s): 4294150 Plan: Continue routine postop care and pain control. Continue anticoagulation with Xarelto. Strictly nonweightbearing to the left lower extremity. Daily dressing changes. Veena to be removed 10-14 days postoperatively. Appreciate input from medicine. Patient is stable for discharge home with homecare from an orthopedic standpoint.
[2019-03-21 16:21] VITALS: BP 124/81; PULSE 90; RESP 18; TEMP 98.5
--- NOTE | 2019-03-21 17:36 | P.DS ---
Providers Date of admission: 03/18/19 14:40 Attending physician: Kimberly Reid Consults: 03/18/19 14:40 Consult Physician Stat Consulting Provider: Nelson Neumann Consult Reason/Comments: Left hip fracture Do you want consulting provider notified?: Yes 03/19/19 22:18 Consult Physician Routine Consulting Provider: Rhett Callejas Consult Reason/Comments: Left ankle infection Do you want consulting provider notified?: Yes Primary care physician: Stated None Hospital Course: 43-year-old male with a past medical history of hypertension, COPD, nicotine dependence, left ankle fracture with osteomyelitis currently on antibiotic coming to the hospital after having a fall last night. Patient had left ankle fracture and is currently on levofloxacin for osteomyelitis and using crutches to move around. Last night he tried to get up with the help of crutches and slipped and fell on his left side. Patient started to have pain in the left hip and came to the hospital for further evaluation. Patient states that he slipped and fell but did not have any chest pain or palpitations or dizziness at the time of fall. In the ER patient had an x-ray of his left hip showing comminuted intertrochanteric fracture of the left hip, so he is admitted for further management. On 03/20/19 -The patient had closed reduction and intramedullary nailing of the left hip done by Dr. Neumann yesterday. Patient is resting in a recliner by the bed side comfortably. Patient denies having any tingling or numbness in his left foot. 03/21/2019 Patient was cleared by orthopedic surgery and the infectious disease and patient is on long-term levofloxacin patient has significant swelling in the left ankle area patient will be given prescription for [place] reviewed his maps, patient will be given prescription for [place] as well as non-steroidal anti-inflammatory medications for pain. PHYSICAL EXAMINATION: GENERAL: The patient is alert and oriented x3, not in any acute distress. Well developed, well nourished. HEENT: Pupils are round and equally reacting to light. EOMI. No scleral icterus. No conjunctival pallor. Normocephalic, atraumatic. No pharyngeal erythema. No thyromegaly. CARDIOVASCULAR: S1 and S2 present. No murmurs, rubs, or gallops. PULMONARY: Chest is clear to auscultation, no wheezing or crackles. ABDOMEN: Soft, nontender, nondistended, normoactive bowel sounds. No palpable organomegaly. MUSCULOSKELETAL: No joint swelling or deformity. EXTREMITIES: No cyanosis, clubbing, or pedal edema. left ankle is significantly swollen NEUROLOGICAL: Gross neurological examination did not reveal any focal deficits. SKIN: No rashes. Comminuted intertrochanteric fracture of the left hip - S/p closed reduction and intramedullary nailing Acute blood loss anemia- s/p surgery - Stable Hypertension History of left ankle fracture with osteomyelitis, patient is on levofloxacin for long time COPD Chronic nicotine dependence Patient Condition at Discharge: Stable Plan - Discharge Summary Discharge Rx Participant: Yes New Discharge Prescriptions: New Nicotine 21Mg/24Hr Patch [Habitrol] 1 patch TRANSDERM DAILY #14 patch Ibuprofen [Motrin] 400 mg PO Q6HR PRN #30 tab PRN Reason: Mild Pain Or Fever > 100.5 HYDROcodone/APAP 5-325MG [[place] 5-325] 1 each PO Q4-6H PRN #20 tab PRN Reason: Pain Scale 1 To 5 Sennosides-Docusate Sodium [Senokot-S] 2 each PO HS PRN #30 tab PRN Reason: Constipation Rivaroxaban [Xarelto] 10 mg PO DAILY #30 tab Famotidine [Pepcid] 20 mg PO BID #30 tablet Continue Lisinopril 20 mg PO DAILY amLODIPine [Norvasc] 5 mg PO DAILY Pregabalin [Lyrica] 150 mg PO BID Lisinopril [Prinivil] 20 mg PO DAILY Levofloxacin [Levaquin] 500 mg PO DAILY Discharge Medication List Lisinopril 20 mg PO DAILY 12/19/18 [History] Levofloxacin [Levaquin] 500 mg PO DAILY 03/18/19 [History] Lisinopril [Prinivil] 20 mg PO DAILY 03/18/19 [History] Pregabalin [Lyrica] 150 mg PO BID 03/18/19 [History] amLODIPine [Norvasc] 5 mg PO DAILY 03/18/19 [History] Famotidine [Pepcid] 20 mg PO BID #30 tablet 03/21/19 [Rx] HYDROcodone/APAP 5-325MG [[place] 5-325] 1 each PO Q4-6H PRN #20 tab 03/21/19 [Rx] Ibuprofen [Motrin] 400 mg PO Q6HR PRN #30 tab 03/21/19 [Rx] Nicotine 21Mg/24Hr Patch [Habitrol] 1 patch TRANSDERM DAILY #14 patch 03/21/19 [Rx] Rivaroxaban [Xarelto] 10 mg PO DAILY #30 tab 03/21/19 [Rx] Sennosides-Docusate Sodium [Senokot-S] 2 each PO HS PRN #30 tab 03/21/19 [Rx] Follow up Appointment(s)/Referral(s): None,Stated [Primary Care Provider] - 1-2 days Nelson Neumann DO [Doctor of Osteopathic Medicine] - 04/05/19 1:30 pm [facility] Visiting Nurse, [NON-STAFF] - As Needed Patient Instructions/Handouts: ORIF of Hip Fracture (DC) Activity/Diet/Wound Care/Special Instructions: Strictly nonweightbearing to the left lower extremity with a walker. May shower after 24-48 hours if no drainage from incisions. Recommend use of compression stockings daily for at least 2 weeks during the day to help prevent swelling and blood clots. May remove at night before sleeping. Follow-up with [facility] in 2 weeks with any questions or concerns, please call with any questions or concerns, Discharge Disposition: HOME SELF-CARE
--- NOTE | 2019-03-21 20:02 | P.PN ---
Subjective Progress Note Date: 03/21/19 This is a 44-year-old male patient well known to ID service. In February 2018 he had open ankle fracture on the left from a trampoline accident. He was transferred to [facility] and underwent ORIF with Dr. Dickey. In August 2018 he had a slip and fall and twisted the left ankle and went to [facility] and had a washout done at that time. In December 2018 patient had increasing pain with found to have osteomyelitis and hardware was removed at [facility]. He has followed up with Dr. Callejas in the office for osteomyelitis, chronic, with plan for lifelong Levaquin per patient report. Wound culture was positive for Serratia marcescens. He did complete course of IV antibiotics and PICC line was removed. On March 17 patient had a slip and fall landing on the left hip while he was walking with crutches. He came into [facility] for evaluation found to have a left hip fracture status post IM nail done yesterday with Dr. Neumann. Patient states that he is feeling better since when he came in but his pain is still a #8. He is considering subacute rehab at discharge. Regarding the left ankle, he states that he may undergo bone fusion and if that is not successful amputation but currently on lifelong antibiotic therapy. He is currently strict nonweightbearing on the left side. He is waiting to be evaluated by PT and concerned that he does have 3 steps to get into his home. 03/21/2019 now improved with PT able to transfer and toliet without assistance and is ready for discharge to home, was able to navigate 2 steps like he has at home to allow entry. Objective - Vital Signs Vital signs: Vital Signs Temp 98.5 F 03/21/19 15:45 Pulse 90 03/21/19 15:45 Resp 18 03/21/19 15:45 BP 124/81 03/21/19 15:45 Pulse Ox 98 03/21/19 15:45 Intake & Output 03/21/19 03/21/19 03/22/19 06:59 18:59 06:59 Intake Total 810 Output Total 650 Balance -650 810 Intake: Oral 810 Output: Urine 650 Other: # Voids 1 - Exam en: This is a 44-year-old male. He is resting in bed appears to be comfortable in no acute distress. HEENT: Head is atraumatic, normocephalic. Pupils equal, round. Sclerae is anicteric. Conjunctiva pink. Mucous membranes of the mouth are moist. Dentition is in fair order. NECK: Supple. No JVD. No lymphadenopathy. No thyromegaly. LUNGS: Clear to auscultation. No wheezes or rhonchi. No intercostal retractions. HEART: Regular rate and rhythm. No murmur. ABDOMEN: Soft. Bowel sounds are present. No masses. No tenderness. EXTREMITIES: No pedal edema. No calf tenderness. The deformity noted to the left ankle with multiple surgical scars that are healed. Area is warm to the touch. Dressing in place to the left hip with no breakthrough bleeding or drain age. NEUROLOGICAL: Patient is awake, alert and oriented x3. - Labs CBC & Chem 7: 03/21/19 06:23 03/20/19 18:47 Labs: Abnormal Lab Results - Last 24 Hours (Table) 03/21/19 Range/Units 06:23 RBC 3.30 L (4.30-5.90) m/uL Hgb 11.3 L (13.0-17.5) gm/dL Hct 33.7 L (39.0-53.0) % MCV 102.0 H (80.0-100.0) fL Lymphocytes # 0.7 L (1.0-4.8) k/uL Laboratory Results WBC 6.0 k/uL (3.8-10.6) 03/21/19 06:23 RBC 3.30 m/uL (4.30-5.90) L 03/21/19 06:23 Hgb 11.3 gm/dL (13.0-17.5) L 03/21/19 06:23 Hct 33.7 % (39.0-53.0) L 03/21/19 06:23 MCV 102.0 fL (80.0-100.0) H 03/21/19 06:23 MCH 34.1 pg (25.0-35.0) 03/21/19 06:23 MCHC 33.4 g/dL (31.0-37.0) 03/21/19 06:23 RDW 13.1 % (11.5-15.5) 03/21/19 06:23 Plt Count 153 k/uL (150-450) 03/21/19 06:23 Neutrophils % 79 % 03/21/19 06:23 Lymphocytes % 12 % 03/21/19 06:23 Monocytes % 5 % 03/21/19 06:23 Eosinophils % 2 % 03/21/19 06:23 Basophils % 1 % 03/21/19 06:23 Neutrophils # 4.7 k/uL (1.3-7.7) 03/21/19 06:23 Lymphocytes # 0.7 k/uL (1.0-4.8) L 03/21/19 06:23 Monocytes # 0.3 k/uL (0-1.0) 03/21/19 06:23 Eosinophils # 0.1 k/uL (0-0.7) 03/21/19 06:23 Basophils # 0.0 k/uL (0-0.2) 03/21/19 06:23 Macrocytosis Slight 03/21/19 06:23 PT 9.5 sec (9.0-12.0) 03/18/19 14:08 INR 0.9 (<1.2) 03/18/19 14:08 APTT 27.2 sec (22.0-30.0) 03/18/19 14:08 Sodium 130 mmol/L (137-145) L 03/20/19 18:47 Potassium 4.1 mmol/L (3.5-5.1) 03/20/19 18:47 Chloride 99 mmol/L (98-107) 03/20/19 18:47 Carbon Dioxide 19 mmol/L (22-30) L 03/20/19 18:47 Anion Gap 12 mmol/L 03/20/19 18:47 BUN 15 mg/dL (9-20) 03/20/19 18:47 Creatinine 0.98 mg/dL (0.66-1.25) 03/20/19 18:47 Est GFR (CKD-EPI)AfAm >90 (>60 ml/min/1.73 sqM) 03/20/19 18:47 Est GFR (CKD-EPI)NonAf >90 (>60 ml/min/1.73 sqM) 03/20/19 18:47 Glucose 108 mg/dL (74-99) H 03/20/19 18:47 Calcium 8.4 mg/dL (8.4-10.2) 03/20/19 18:47 Total Bilirubin 0.7 mg/dL (0.2-1.3) 03/18/19 14:08 AST 27 U/L (17-59) 03/18/19 14:08 ALT 18 U/L (21-72) L 03/18/19 14:08 Alkaline Phosphatase 64 U/L (38-126) 03/18/19 14:08 Total Protein 7.6 g/dL (6.3-8.2) 03/18/19 14:08 Albumin 4.4 g/dL (3.5-5.0) 03/18/19 14:08 Assessment and Plan (1) Closed intertrochanteric fracture of left femur Status: Acute Code(s): S72.142A - DISPLACED INTERTROCHANTERIC FRACTURE OF LEFT FEMUR, INIT SNOMED Code(s): 24012423 (2) Fall Status: Acute Code(s): W19.XXXA - UNSPECIFIED FALL, INITIAL ENCOUNTER SNOMED Code(s): 3058864 (3) Chronic osteomyelitis involving ankle and foot Narrative/Plan: This pleasant gentleman is well-known to this service where he has been followed because of the significant infection to his left ankle. He's had extensive reconstruction and is now having a marked improvement. He completed his course of outpatient intravenous antibiotic therapy has been transitioned to oral antibiotic therapy for some chronic infection. He is tolerating that well. As noted he suffered a fall resulting in the left hip fracture that required the intramedullary nailing that has now been completed. He is definitely feeling somewhat better and is not having fevers or chills. The patient remained on his Levaquin therapy for the chronic infection to the left ankle area that is having some marked improvement. Last data from the orthopedic trauma surgeon revealed that the ankle and stabilized there were no plans for any further surgical intervention in there was no plans for amputation. The patient will remain on his Levaquin therapy which we ensure as instituted during this time. The left hip does not appear to be infected shall monitor. 03/21/2019 patient with improvement and ready for discharge to home. Will remain on Levaquin for now given the chronic infection of the left ankle, discussed with the hospitalist and family has followup in office already scheduled. Status: Acute Code(s): M86.679 - OTHER CHRONIC OSTEOMYELITIS, UNSPECIFIED ANKLE AND FOOT SNOMED Code(s): 266824585
== END 2019-03-21 17:08 | disposition home health service (06) | DRG 481 ==
LOC: EC 12:49 → 4SSUR 14:40
PROVIDERS: ADMIT Internal Medicine; ATTEND Internal Medicine
PROC: 0QS706Z Reposition Left Upper Femur with Intramedullary Internal Fixation Device, Open Approach (ICD-10-PCS; principal; 2019-03-18)
DX: S72.142A Displaced intertrochanteric fracture of left femur, initial encounter for closed fracture (principal); M86.672 Other chronic osteomyelitis, left ankle and foot; D62 Acute posthemorrhagic anemia; F41.9 Anxiety disorder, unspecified; I10 Essential (primary) hypertension; J44.9 Chronic obstructive pulmonary disease, unspecified; K59.00 Constipation, unspecified; W01.0XXA Fall on same level from slipping, tripping and stumbling without subsequent striking against object, initial encounter; F17.200 Nicotine dependence, unspecified, uncomplicated; Y92.009 Unspecified place in unspecified non-institutional (private) residence as the place of occurrence of the external cause; Z79.01 Long term (current) use of anticoagulants; Z79.899 Other long term (current) drug therapy; Z83.3 Family history of diabetes mellitus; Z79.2 Long term (current) use of antibiotics
CPT/HCPCS: 36415; 71045; 73501; 73502; 80048; 80053; 85025; 85610; 85730; 96361; 96374; 99284

== ENCOUNTER 2021-09-05 14:23 | Emergency (ER) | payer OTHER ==
[2021-09-05 16:27] VITALS: BP 105/91; PULSE 105; RESP 20; TEMP 96.9
--- NOTE | 2021-09-05 16:34 | ED ---
General Adult HPI - General Chief complaint: Neuro Symptoms/Deficit Stated complaint: RT LEG NUMB,ABDOMINAL PAIN Time Seen by Provider: 09/05/21 15:37 Source: patient Mode of arrival: ambulatory Limitations: no limitations - History of Present Illness Initial comments: Dictation was produced using [employer] dictation software. please excuse any gramma tical, word or spelling errors. Chief Complaint: 46-year-old male presents emergency department for tremulousness, numbness to bilateral hands and right foot. History of Present Illness: Patient is a 46-year-old male he has past medical history COPD and hypertension. Patient states that he is here for evaluation of his tremulousness and numbness to bilateral hands and right foot. States that his symptoms began with numbness is bilateral hands. Symptoms began approximate one month ago. 3 weeks ago started having numbness in his right foot from his knee to his toes. Around the same time started having shaking to his whole body. Patient not sure if he suffered a stroke. Today he tried to call his PCP and was told by staff that the sputum is not in the office and to go to the emergency department if his symptoms were that bad. The ROS documented in this emergency department record has been reviewed and confirmed by me. Those systems with pertinent positive or negative responses have been documented in the HPI. All other systems are other negative and/or noncontributory. PHYSICAL EXAM: General Impression: Alert and oriented x3, not in acute distress, tremulous to his entire body including his tongue HEENT: Normocephalic atraumatic, extra-ocular movements intact, pupils equal and reactive to light bilaterally, mucous membranes moist. Cardiovascular: Heart regular rate and rhythm Chest: Able to complete full sentences, no retractions, no tachypnea Abdomen: abdomen soft, non-tender, non-distended, no organomegaly Musculoskeletal: Pulses present and equal in all extremities, no peripheral edema Motor: no focal deficits noted Neurological: CN II-XII grossly intact, no focal motor or sensory deficits noted Skin: Nonjaundiced Psych: Normal affect and mood ED course: Patient is a 46-year-old male presents emergency department for tremulousness and sensory deficits in his bilateral hands and right foot ongoing for 3-4 weeks. Vital signs upon arrival shows heart rate of 118, rest of vital signs within acceptable limits. Laboratory evaluation obtained. CBC and coag panel is unremarkable. Metabolic panel shows sodium of 1:30. BUN 27 and creatinine of 0.79. Likely prerenal azotemia from dehydration. Computed tomography scan of brain and chest x-ray is unremarkable. Patient was or the emergency department for approximately 4 hours and 55 minutes. Patient evaluated bedside at 7:15 PM found to be stable medical condition. Patient notified of the results. Patient's symptoms likely secondary to neuropathy of unspecified reason. He does still appear to be mildly tremulous. Patient advised to increase his sodium intake and follow up w ith his primary care doctor soon as possible for outpatient management of his symptoms. Patient agreeable plan. His agreeable with discharge. - Related Data Home Medications Medication Instructions Recorded Confirmed lisinopriL 20 mg PO DAILY 12/19/18 09/05/21 Budesonide/Formoterol Fumarate 2 puff INHALATION RT-BID 09/05/21 09/05/21 [Symbicort 160-4.5 Mcg Inhaler] Docusate [Colace] 100 mg PO BID PRN 09/05/21 09/05/21 Folic Acid 1 mg PO DAILY 09/05/21 09/05/21 HYDROcodone/APAP 7.5-325MG [Jacobson 1 tab PO QID PRN 09/05/21 09/05/21 7.5-325] amLODIPine [Norvasc] 10 mg PO DAILY 09/05/21 09/05/21 Allergies Allergy/AdvReac Type Severity Reaction Status Date / Time No Known Allergies Allergy Verified 09/05/21 16:28 Review of Systems ROS Statement: Those systems with pertinent positive or pertinent negative responses have been documented in the HPI. ROS Other: All systems not noted in ROS Statement are negative. Past Medical History Past Medical History: COPD, Hypertension Additional Past Medical History / Comment(s): Chronic osteomyelitis left ankle History of Any Multi-Drug Resistant Organisms: None Reported Past Surgical History: Orthopedic Surgery Additional Past Surgical History / Comment(s): jaw, wrist, L ankle ORIF, followed by washout, followed by hardware removal, left hip IM nail Past Psychological History: Anxiety Smoking Status: Current every day smoker Past Alcohol Use History: Daily Past Drug Use History: None Reported - Past Family History Father Family Medical History: Cancer, Diabetes Mellitus Mother Family Medical History: Cancer General Exam Limitations: no limitations Course Vital Signs 04/01/22 04/01/22 14:33 16:24 Temperature 98 F 96.9 F L Pulse Rate 120 H 105 H Respiratory 22 20 Rate Blood Pressure 118/69 105/91 O2 Sat by Pulse 98 94 L Oximetry Medical Decision Making - Lab Data Result diagrams: 09/05/21 17:08 09/05/21 17:08 Lab Results 09/05/21 09/05/21 09/05/21 Range/Units 17:08 17:08 17:08 WBC 9.6 (3.8-10.6) k/uL RBC 4.40 (4.30-5.90) m/uL Hgb 15.3 (13.0-17.5) gm/dL Hct 45.6 (39.0-53.0) % MCV 103.6 H (80.0-100.0) fL MCH 34.9 (25.0-35.0) pg MCHC 33.7 (31.0-37.0) g/dL RDW 12.9 (11.5-15.5) % Plt Count 226 (150-450) k/uL MPV 7.7 Neutrophils % 80 % Lymphocytes % 13 % Monocytes % 4 % Eosinophils % 1 % Basophils % 1 % Neutrophils # 7.7 (1.3-7.7) k/uL Lymphocytes # 1.2 (1.0-4.8) k/uL Monocytes # 0.4 (0-1.0) k/uL Eosinophils # 0.1 (0-0.7) k/uL Basophils # 0.1 (0-0.2) k/uL Macrocytosis Slight PT 10.4 (9.0-12.0) sec INR 1.0 (<1.2) APTT 23.8 (22.0-30.0) sec Sodium 130 L (137-145) mmol/L Potassium 3.9 (3.5-5.1) mmol/L Chloride 101 (98-107) mmol/L Carbon Dioxide 21 L (22-30) mmol/L Anion Gap 8 mmol/L BUN 27 H (9-20) mg/dL Creatinine 0.79 (0.66-1.25) mg/dL Est GFR (CKD-EPI)AfAm >90 (>60 ml/min/1.73 sqM) Est GFR (CKD-EPI)NonAf >90 (>60 ml/min/1.73 sqM) Glucose 104 H (74-99) mg/dL Plasma Lactic Acid Rich (0.7-2.0) mmol/L Calcium 9.2 (8.4-10.2) mg/dL Ionized Calcium Teresa 5.2 (4.5-5.3) mg/dL Magnesium 1.8 (1.6-2.3) mg/dL Total Bilirubin 0.9 (0.2-1.3) mg/dL Conjugated Bilirubin 0.0 (0.0-0.3) mg/dL Unconjugated Bilirubin 0.6 (0.0-1.1) mg/dL Delta Bilirubin 0.3 H (0.0-0.2) mg/dL AST 42 (17-59) U/L ALT 32 (4-49) U/L Alkaline Phosphatase 88 (38-126) U/L Ammonia (<30) umol/L Total Protein 6.7 (6.3-8.2) g/dL Albumin 3.6 (3.5-5.0) g/dL 09/05/21 Range/Units 17:08 WBC (3.8-10.6) k/uL RBC (4.30-5.90) m/uL Hgb (13.0-17.5) gm/dL Hct (39.0-53.0) % MCV (80.0-100.0) fL MCH (25.0-35.0) pg MCHC (31.0-37.0) g/dL RDW (11.5-15.5) % Plt Count (150-450) k/uL MPV Neutrophils % % Lymphocytes % % Monocytes % % Eosinophils % % Basophils % % Neutrophils # (1.3-7.7) k/uL Lymphocytes # (1.0-4.8) k/uL Monocytes # (0-1.0) k/uL Eosinophils # (0-0.7) k/uL Basophils # (0-0.2) k/uL Macrocytosis PT (9.0-12.0) sec INR (<1.2) APTT (22.0-30.0) sec Sodium (137-145) mmol/L Potassium (3.5-5.1) mmol/L Chloride (98-107) mmol/L Carbon Dioxide (22-30) mmol/L Anion Gap mmol/L BUN (9-20) mg/dL Creatinine (0.66-1.25) mg/dL Est GFR (CKD-EPI)AfAm (>60 ml/min/1.73 sqM) Est GFR (CKD-EPI)NonAf (>60 ml/min/1.73 sqM) Glucose (74-99) mg/dL Plasma Lactic Acid Rich 0.9 (0.7-2.0) mmol/L Calcium (8.4-10.2) mg/dL Ionized Calcium Teresa (4.5-5.3) mg/dL Magnesium (1.6-2.3) mg/dL Total Bilirubin (0.2-1.3) mg/dL Conjugated Bilirubin (0.0-0.3) mg/dL Unconjugated Bilirubin (0.0-1.1) mg/dL Delta Bilirubin (0.0-0.2) mg/dL AST (17-59) U/L ALT (4-49) U/L Alkaline Phosphatase (38-126) U/L Ammonia 14 (<30) umol/L Total Protein (6.3-8.2) g/dL Albumin (3.5-5.0) g/dL Disposition Clinical Impression: Neuropathy Disposition: HOME SELF-CARE Condition: Fair Instructions (If sedation given, give patient instructions): Peripheral Neuropathy (ED) Is patient prescribed a controlled substance at d/c from ED?: No Referrals: Matt Schmitz [Primary Care Provider] - 1-2 days
--- NOTE | 2021-09-05 16:56 | XR ---
EXAMINATION TYPE: XR chest 1V portable DATE OF EXAM: 09/05/2021 COMPARISON: 03/18/2019 HISTORY: Leg pain. Arm numbness. TECHNIQUE: FINDINGS: Heart and mediastinum are normal. Lungs are clear. Diaphragm is normal. Bony thorax appears normal. IMPRESSION: Normal chest.
[2021-09-05 17:19] LABS: Basophils # (A) 0.1 k/uL (0-0.2); Basophils % (A) 1 %; Eosinophils # (A) 0.1 k/uL (0-0.7); Eosinophils % (A) 1 %; HCT 45.6 % (39.0-53.0); HGB 15.3 gm/dL (13.0-17.5); Lymphocytes # (A) 1.2 k/uL (1.0-4.8); Lymphocytes % (A) 13 %; MCH 34.9 pg (25.0-35.0); MCHC 33.7 g/dL (31.0-37.0); MCV 103.6 fL (80.0-100.0); Macrocytosis Slight; Mean Platelet Volume 7.7; Monocytes # (A) 0.4 k/uL (0-1.0); Monocytes % (A) 4 %; Neutrophils # (A) 7.7 k/uL (1.3-7.7); Neutrophils % (A) 80 %; Platelet Count 226 k/uL (150-450); RDW 12.9 % (11.5-15.5); WBC 9.6 k/uL (3.8-10.6)
[2021-09-05 17:23] LABS: Ionized Calcium 5.2 mg/dL (4.5-5.3)
[2021-09-05 17:28] LABS: Lactic Acid, Venous 0.9 mmol/L (0.7-2.0)
[2021-09-05 17:32] LABS: Partial Thromboplastin Time 23.8 sec (22.0-30.0); Prothrombin Time 10.4 sec (9.0-12.0)
[2021-09-05 17:35] LABS: ALT 32 U/L (4-49); AST 42 U/L (17-59); African American GFR (CKD) >90 (>60 ml/min/1.73 sqM); Albumin 3.6 g/dL (3.5-5.0); Alkaline Phosphatase 88 U/L (38-126); Anion Gap 8 mmol/L; Bilirubin, Delta 0.3 mg/dL (0.0-0.2); Bilirubin,Unconjugated 0.6 mg/dL (0.0-1.1); Blood Urea Nitrogen 27 mg/dL (9-20); Calcium 9.2 mg/dL (8.4-10.2); Carbon Dioxide 21 mmol/L (22-30); Chloride 101 mmol/L (98-107); Glucose 104 mg/dL (74-99); Magnesium 1.8 mg/dL (1.6-2.3); Non-African American GFR(CKD) >90 (>60 ml/min/1.73 sqM); Potassium 3.9 mmol/L (3.5-5.1); Sodium 130 mmol/L (137-145); Total Bilirubin 0.9 mg/dL (0.2-1.3); Total Protein 6.7 g/dL (6.3-8.2)
--- NOTE | 2021-09-05 18:08 | CT ---
EXAMINATION TYPE: CT brain wo con DATE OF EXAM: 09/05/2021 COMPARISON: None HISTORY: Bilateral hand and leg numbness. CT DLP: 1090.4 mGycm Automated exposure control for dose reduction was used. Images of the brain obtained without contrast. There is mild cerebral cortical atrophy. There is no mass effect or midline shift. There is no sign o f intracranial hemorrhage. Calvarium is intact. There is normal aeration of the mastoid sinuses. Skul l base is intact. IMPRESSION: Mild cerebral atrophy. No acute intracranial abnormality.
[2021-09-05] MEDS ORDERED: SODIUM CHLORIDE 0.9% 1,000 ML IV STA (19:04)
== END 2021-09-05 19:25 | disposition home or self-care (01) ==
LOC: EC 14:23
DX: G62.9 Polyneuropathy, unspecified (principal); J44.9 Chronic obstructive pulmonary disease, unspecified; I10 Essential (primary) hypertension; F41.9 Anxiety disorder, unspecified; F17.200 Nicotine dependence, unspecified, uncomplicated
CPT/HCPCS: 36415; 70450; 71045; 80053; 82140; 82248; 82330; 83605; 83735; 85025; 85610; 85730; 99284

== ENCOUNTER → 2021-09-26 | Outpatient (CLI) | payer OTHER ==
--- NOTE | 2021-09-26 09:41 | MR ---
EXAMINATION TYPE: MR cervical spine wo/w con DATE OF EXAM: 09/26/2021 COMPARISON: None HISTORY: Spinal stenosis, paresthesia, numbness and tingling in both hands TECHNIQUE: Multiplanar, multisequence images of the cervical spine were acquired without contrast and with 7 mL intravenous Gadavist gadolinium contrast. Diffusion weighted imaging was performed. FINDINGS: Exam limited by motion. C2-C3: No disc herniation or canal stenosis. Mild bilateral uncovertebral joint hypertrophy. Neural f oramina remain patent. C3-C4: Degenerative disc disease with bilateral uncovertebral joint hypertrophy greater on the right with severe right-sided foraminal encroachment and moderate left foraminal encroachment. Disc capped by spur extends paracentrally and laterally to the right. Borderline canal stenosis. C4-C5: Degenerative disc disease and broad-based and focal central disc extrusion or herniation exten ding posterior to the upper margin of the C5 vertebral segment. Extruded disc component in the differ ential diagnosis. Appears to be mild mass effect upon the anterior margin the spinal cord. Suspect a central disc herniation. Uncovertebral joint hypertrophy noted greater on the right with mild left fo raminal encroachment and moderate right foraminal. C5-C6: Posterior spondylosis with disc protrusion capped by spur resulting in anterior compression of the spinal cord. Uncovertebral joint hypertrophy and facet arthropathy contribute to severe bilatera l foraminal encroachment. There is moderate canal stenosis. C6-C7: Degenerative disc disease with broad-based right paracentral disc herniation capped by spur re sulting in encroachment of the anterior margin of the spinal cord. Uncovertebral joint hypertrophy an d facet arthropathy contribute to mild left and moderate right foraminal encroachment. C7-T1: No evidence for degenerative disc disease. No disc bulge/herniation or protrusion. No Canal stenosis. Foramina are patent bilaterally. Cervical spinal cord is somewhat limited assessment due to motion artifact. No obvious abnormal enhan cement Craniovertebral junction relationships are within normal limits. The disc signal compatible with desiccation at all levels with loss of disc space at levels C4-5 and more marked at C5-6 and C6-C7. Incidental note is made of a upper thoracic spine disc herniation susp ected with encroachment upon the anterior margin of the spinal cord in the region of T3-T4 only inclu ded on the sagittal images. Prominent cisterna magna noted and there appears to be at least 2 epidermal skin lesion seen in the u pper cervical posterior soft tissues. Correlate clinically. IMPRESSION: 1. Multilevel degenerative disc disease most marked at C5-C6. There is multilevel disc osteophyte com plex with disc protrusion or herniation capped at spur resulting in canal stenosis. There is encroach ment upon the anterior margin or mild anterior compression of the spinal cord C4-C5, C5-C6 and C6-C7. 2. Hypertrophic facet arthropathy and uncovertebral joint hypertrophy result in significant foraminal encroachment at multiple levels as discussed above. 3. Sagittal images demonstrate apparent sagittal disc herniation only partially included in the field -of-view at the approximate level T3-T4. Correlate with thoracic spine MRI as clinically warranted.
== END | disposition home or self-care (01) ==
LOC: RADMRIMAIN 08:33
PROVIDERS: ATTEND Family Medicine
DX: M50.322 Other cervical disc degeneration at C5-C6 level (principal); M25.78 Osteophyte, vertebrae; M47.812 Spondylosis without myelopathy or radiculopathy, cervical region; M51.24 Other intervertebral disc displacement, thoracic region; M48.02 Spinal stenosis, cervical region; G95.20 Unspecified cord compression
CPT/HCPCS: 72156; A9585

== ENCOUNTER → 2021-10-22 | Outpatient (CLI) | payer OTHER ==
--- NOTE | 2021-10-22 08:11 | MR ---
EXAMINATION TYPE: MR tspine/lspine wo con DATE OF EXAM: 10/22/2021 COMPARISON: NONE HISTORY: Bilateral upper and lower extremity pain/numbness. TECHNIQUE: Multiplanar, multisequence imaging of the thoracic and lumbar spine are performed without IV contrast. FINDINGS: Thoracic spine: FINDINGS: Vertebral body heights and alignment are satisfactory. Mild/moderate multilevel disc space narrowing greatest in the mid to lower thoracic spine with mild multilevel anterior spurring. Office Mover ior disc herniations T3-T4 along with T7-T8 through T9-T10 levels are noted on sagittal images. Sligh t indentation of the spinal cord at T3-T4 level. No abnormal cord signal. Small hemangioma noted T12 vertebral sagittal image 8. Review of the axial images confirms focal left paracentral disc protrusion effacing the anterior thec al sac with indentation of spinal cord on image 12 series 701. Patent bilateral neural foramina. Axial images at T6-T7 level show left paracentral disc protrusion effacing ventral thecal sac on imag e 1. Axial images at T7-T8 level show focal central disc protrusion effacing anterior thecal sac up to leigh tral surface of spinal cord without abnormal signal or volume loss on image 17 series 601. Axial images at T8-T9 show similar finding slightly less prominent with central disc protrusion on im age 13. Axial images at T9-T10 level show more prominent left paracentral disc protrusion effacing the anteri or thecal sac of the ventral surface of spinal cord which is slightly flattened on image 11. Mild facet arthropathy lower thoracic spine is seen. The visualized thorax and upper abdomen show no obvious abnormality IMPRESSION: Multilevel degenerative changes in the thoracic spine as detailed above with few prominen t disc herniations indenting on the anterior thecal sac. No abnormal cord signal noted however. Lumbar spine: Sagittal images of the lumbar spine show vertebral body heights to appear satisfactory. Slight grade retrolisthesis L2 on L3. There is multilevel disc desiccation and disc space narrowing with relative sparing of the L4-L5 level. Moderate to advanced this space narrowing and anterior spurring with hete rogeneous morbid type II endplate changes and vacuum disc phenomenon noted L2-L3 level. Mild to moder ate disc space narrowing with vacuum disc phenomenon noted L5-S1 level. Mild to moderate disc space n arrowing and anterior spurring noted L1-L2 level. The conus medullaris is normal in position and sign al ending at T12-L1 disc space level. Axial images at T12-L1 level are not performed. Sagittal images appear unremarkable. Axial images at L1-L2 level appears within normal limits. Axial images at L2-L3 level shows spondylosis with [id number] broad disc bulge mildly effacing the anterior thecal sac, patent bilateral neural foramina. Axial images at L3-L4 level show mild broad disc bulge and mild facet arthropathy bilaterally with mi ld bilateral neural foraminal narrowing. Axial images at L4-L5 levels with [id number] facet arthropathy bilaterally. Spinal canal is pre served. Mild bilateral neural foraminal narrowing is seen. Axial images at L5-S1 level shows [id number] facet arthropathy bilaterally. There is a broad-ba sed left paracentral disc protrusion with annular tear mildly effacing anterolateral thecal sac. Ther e is more prominent effacement of the lateral recess. Increased epidural fat at this level is noted. Encroachment close to the central left S1 nerve noted axial image 2. Bilateral neural foramina are pa tent. Paraspinal muscle bulk is preserved. IMPRESSION: Straightening of lumbar spine with focal spondylolisthesis L2-L3 level. Multilevel degene rative changes in the mid to lower lumbar spine as detailed above.
--- NOTE | 2021-10-22 11:30 | CT ---
EXAMINATION TYPE: CT cervical spine wo con DATE OF EXAM: 10/22/2021 COMPARISON: Cervical spine x-ray 13 days ago HISTORY: Cervicalgia CT DLP: 458.10 mGycm. Automated Exposure Control for Dose Reduction was Utilized. TECHNIQUE: CT scan of the cervical spine is obtained without contrast, axial images are obtained, sa gittal and coronal reformatted images are also reviewed. FINDINGS: Cervical spine is visualized in its entirety from C1 through upper thoracic levels, there i s slight grade 1 retrolisthesis C5 on C6. Prevertebral soft tissue appears within normal limits. Th e C1-C2 articulation is within normal limits on the coronal images. Vertebral body heights are mainta ined. Mild to moderate disc space narrowing and spurring at this level is present. Axial images show C2-C3 level to appear within normal limits. Axial images at C3-C4 level show right paracentral spur disc complex effacing anterolateral thecal sa c with additional left foraminal spurring, there is mild bilateral neural foraminal narrowing. Axial images at C4-C5 level shows tiny central disc protrusion mildly facing anterior thecal sac on i mage 46 with marginal spurring causing mild to moderate right greater than left bilateral neural fora caleb narrowing. Axial images at C5-C6 level slight spondylolisthesis and focal central disc protrusion effacing the a nterior thecal sac with uncovertebral facet spurring causing moderate to severe bilateral neural fora caleb narrowing. Axial images at C6-C7 level show posterior spur disc complex mildly effacing anterior thecal sac with out significant neural foraminal narrowing. Axial images at C7-T1 level appear within normal limits. Incidental normal-sized thyroid gland. Lung apices show mild emphysematous change without pneumothora x. IMPRESSION: Subtle spondylolisthesis C5-C6 level. Multilevel degenerative changes greatest at C5-C6 l evel as detailed above.
== END | disposition home or self-care (01) ==
LOC: RADMRIMAIN 06:39
PROVIDERS: ATTEND Orthopaedic Surgery
DX: M47.814 Spondylosis without myelopathy or radiculopathy, thoracic region (principal); M47.816 Spondylosis without myelopathy or radiculopathy, lumbar region; M47.812 Spondylosis without myelopathy or radiculopathy, cervical region; M51.24 Other intervertebral disc displacement, thoracic region; M51.26 Other intervertebral disc displacement, lumbar region; M50.222 Other cervical disc displacement at C5-C6 level; M43.16 Spondylolisthesis, lumbar region; M43.12 Spondylolisthesis, cervical region
CPT/HCPCS: 72125; 72146; 72148

== ENCOUNTER → 2021-11-13 | Outpatient (CLI) | payer OTHER ==
[2021-11-13 19:18] LABS: African American GFR (CKD) 146.1 (60.0-200.0); Anion Gap 11.5 mmol/L (10.00-18.00); Blood Urea Nitrogen 6.9 mg/dL (9.0-27.0); Carbon Dioxide 24.9 mmol/L (20.0-27.5); Non-African American GFR(CKD) 126.1 (60.0-200.0); Potassium 4.5 mmol/L (3.5-5.5)
[2021-11-13 19:32] LABS: HCT 40.3 % (39.6-50.0); HGB 12.9 g/dL (13.0-17.0); MCH 33.2 pg (27.0-32.0); MCV 103.6 fL (80.0-97.0); Mean Platelet Volume 9.9 fL (9.5-12.2); NRBC Per 100 WBC 0 /100 WBCS (0.0-0.0); Platelet Count 321 X 10*3/uL (140-440); RBC 3.89 X 10*6/uL (4.40-5.60); RDW 19.4 % (11.5-14.5); WBC 6.75 X 10*3/uL (4.50-10.00)
== END | disposition home or self-care (01) ==
LOC: LABPAT 12:35
PROVIDERS: ATTEND Internal Medicine Cardiovascular Disease
DX: Z01.810 Encounter for preprocedural cardiovascular examination (principal)
CPT/HCPCS: 80051; 82565; 84520; 85027

== ENCOUNTER 2021-11-14 06:30 | Day surgery (SDC) | payer OTHER ==
[2021-11-12 15:01] VITALS: BMI 23.7
[~2021-11-14 06:30] MED LIST: ALPRAZolam 0.25 MG TAB PO PRN; ALPRAZolam 0.5 MG TAB PO PRN; ASPIRIN 325 MG TAB PO STA; ATORVASTATIN 80 MG TAB PO STA; NITROGLYCERIN SL TABS 0.4 MG TAB SUBLINGUAL PRN; SODIUM CHLORIDE 0.9% 1,000 ML in EMPTY BAG 1 BAG IV SCH
[2021-11-14] MEDS ORDERED: HEPARIN SODIUM,PORCINE 2,500 UNIT in SODIUM CHLORIDE 0.9% 250 ML IRRIGATION PRN (07:00)
[2021-11-14] MEDS ORDERED: HEPARIN SODIUM,PORCINE 10,000 UNIT in SODIUM CHLORIDE 0.9% 1,000 ML IRRIGATION PRN (07:00)
[2021-11-14] MEDS ORDERED: SODIUM CHLORIDE 0.9% 1,000 ML IV ONE (07:01)
[2021-11-14 07:18] VITALS: TEMP 98.8
[2021-11-14] MEDS ORDERED: MIDAZOLAM 2 MG/2 ML VIAL IVP ONE (07:43)
[2021-11-14] MEDS ORDERED: fentaNYL (PF) 50 MCG/ML 2 ML AMP IVP ONE (07:43)
[2021-11-14] MEDS ORDERED: LIDOCAINE 1% INJ 10MG/ML (5 ML VIAL-PF) SQ ONE (07:45)
[2021-11-14] MEDS: VERAPAMIL SYRINGE (5 MG/10 ML) INTRAARTER ONE ×2 (07:51→08:02)
[2021-11-14] MEDS ORDERED: HEPARIN SODIUM 1,000 UN/ML (10ML VL) IV ONE (07:54)
[2021-11-14] MEDS ORDERED: IOPAMIDOL-370 125ML BTL INJ ONE (08:02)
[2021-11-14 08:46] VITALS: RESP 16
--- NOTE | 2021-11-14 08:59 | CC ---
CARDIAC CATHETERIZATION REPORT INDICATION: This is a 46-year-old gentleman who is to undergo cervical spine fusion by Dr. Burch and was referred to us because of an abnormal stress test. After explaining risks, benefits and alternatives, patient was advised to undergo cardiac catheterization for definitive evaluation. PROCEDURE NOTE: After obtaining informed consent, left heart catheterization and coronary angiogram were performed via the right radial artery using standard Fabrice catheters. The patient tolerated the procedure well without any obvious immediate complications. A TR band was placed for hemostasis. Patient received moderate conscious sedation. Total sedation time was 20 minutes. He received 5000 units of heparin and 5 mg of verapamil as per protocol. Using a micropuncture needle with Seldinger technique, right atrial access was obtained and catheters and wires were manipulated into the ascending aorta under fluoroscopic guidance, where catheters were exchanged. Right Fabrice was used to get hemodynamics. FINDINGS: Left ventricular end-diastolic pressure is 20 mm. There is no significant gradient across the aortic valve. LEFT VENTRICULOGRAM: Left ventriculogram was not performed. ANGIOGRAPHIC DATA Right coronary artery is a large dominant vessel and is free of significant stenosis. Left main coronary artery is a short vessel. It divides into left anterior descending coronary artery and circumflex coronary artery. LAD gives off two large-caliber diagonal branches. Both the LAD and the diagonals are free of significant stenosis. Circumflex coronary artery gives off a high OM branch that is free of significant stenosis. The second OM branch is a small-caliber vessel but is free of significant disease. CONCLUSIONS: 1. Normal coronary arteries. 2. False-positive stress test. 3. Patient can proceed with his cervical spine fusion surgery. MMODL / IJN: [id number] /
--- NOTE | 2021-11-14 09:03 | LTR ---
November 14, 2021 To: Dr. Hwang Re: Deuce Franco Dear Dr. Hwang, Deuce Franco is a 46-year-old gentleman who is to undergo cervical spine surgery and was referred to us for preoperative cardiac evaluation following an abnormal stress test. On a cardiac catheterization I performed he has normal coronary arteries. His stress test is a false-positive stress test and he is an acceptable risk candidate for surgery under anesthesia. Thank you for giving me the privilege of participating in the care of this pleasant gentleman. Sincerely, Lucian Hendricks M.D. MONAE / J LUIS: [id number] /
[2021-11-14 15:39] VITALS: BP 111/75; PULSE 84
== END 2021-11-14 13:01 | disposition home or self-care (01) ==
LOC: CATHCVL 06:30
PROVIDERS: ATTEND Internal Medicine Cardiovascular Disease
DX: R94.39 Abnormal result of other cardiovascular function study (principal)
CPT/HCPCS: 93458; C1769; C1894; J2250; J2001; J3010; J1644; Q9967

== ENCOUNTER 2023-04-27 16:55 | Observation (INO) | payer OTHER ==
--- NOTE | 2023-04-27 17:09 | ED ---
Nausea/Vomiting/Diarrhea HPI <Kena Buckley - Last Filed: 04/27/23 17:05> - General Source: RN notes reviewed, old records reviewed Mode of arrival: EMS Limitations: no limitations - History of Present Illness MD complaint: nausea, vomiting, diarrhea -: days(s) Description of Vomiting: food contents, watery Description of Diarrhea: water, mucous Associated Abdominal Pain: Yes Location: diffuse Radiation: none Consistency: intermittent Improves with: none Worsens with: none Context: recent surgery/procedure Associated Symptoms: loss of appetite, malaise, nausea/vomiting, weakness <Blade Lobo - Last Filed: 05/04/23 00:23> - General Stated complaint: Vomiting Time Seen by Provider: 04/27/23 17:05 - History of Present Illness Initial comments: Patient is a 48-year-old male presented ER chief complaint of nausea vomiting. Patient states he's had sepsis in February. Patient states he has not been able to keep anything down since Wednesday. Patient states he has been having chills and sweats. (Kena Buckley) This is a 48-year-old male DF for evaluation of nausea and vomiting. Patient has multiple recent illnesses or hospitalizations. Patient hasn't nausea vomiti ng with any attempt at eating or drinking. Patient denying any fevers also having diarrhea. Symptoms are beginning progressively worse no family members sick contacts or similar symptoms (Blade Lobo) - Related Data Home Medications Medication Instructions Recorded Confirmed HYDROcodone/APAP 7.5-325MG [[place] 1 tab PO QID 01/29/22 04/27/23 7.5-325] Levothyroxine Sodium [Synthroid] 75 mcg PO DAILY 02/25/23 04/27/23 Nicotine 21Mg/24Hr Patch [Habitrol] 1 patch TRANSDERM DAILY PRN 02/25/23 04/27/23 Pregabalin [Lyrica] 150 mg PO BID 02/25/23 04/27/23 diazePAM [Valium] 5 mg PO HS PRN 02/25/23 04/27/23 methocarbamoL 250 mg PO Q8H 02/25/23 04/27/23 Previous Rx's Medication Instructions Recorded Potassium Chloride ER [K-Dur 20] 20 meq PO TID #30 tab 04/29/23 Thiamine [Vitamin B-1] 100 mg PO BID #60 tab 04/29/23 hydrALAZINE HCL [Apresoline] 25 mg PO TID #30 tab 04/29/23 Allergies Allergy/AdvReac Type Severity Reaction Status Date / Time No Known Allergies Allergy Verified 04/27/23 21:39 Review of Systems ROS Other: All systems not noted in ROS Statement are negative. <Kena Buckley - Last Filed: 04/27/23 17:05> ROS Other: All systems not noted in ROS Statement are negative. <Blade Lobo - Last Filed: 05/04/23 00:23> ROS Statement: Those systems with pertinent positive or pertinent negative responses have been documented in the HPI. Past Medical History Past Medical History: COPD, GERD/Reflux, Hypertension, Rheumatoid Arthritis (RA) Additional Past Medical History / Comment(s): Chronic osteomyelitis left ankle, pain,numbness and tingling in hands and rt leg, History of Any Multi-Drug Resistant Organisms: None Reported Past Surgical History: Orthopedic Surgery Additional Past Surgical History / Comment(s): left ankle surgery (fx/injury) x 4, left hip repair of fx with rods and pins, metal plate in jaw Past Anesthesia/Blood Transfusion Reactions: No Reported Reaction Past Psychological History: Anxiety Past Alcohol Use History: Occasional - Past Family History Father Family Medical History: Cancer Mother Family Medical History: Cancer <Kena Buckley - Last Filed: 04/27/23 17:05> General Exam <Kena Buckley - Last Filed: 04/27/23 17:05> General appearance: alert, in no apparent distress Head exam: Present: atraumatic, normocephalic, normal inspection Eye exam: Present: normal appearance, PERRL, EOMI. Absent: scleral icterus, conjunctival injection, periorbital swelling ENT exam: Present: normal exam, mucous membranes moist Neck exam: Present: normal inspection. Absent: tenderness, meningismus, lymphadenopathy Respiratory exam: Present: normal lung sounds bilaterally. Absent: respiratory distress, wheezes, rales, rhonchi, stridor Cardiovascular Exam: Present: regular rate, normal rhythm, normal heart sounds. Absent: systolic murmur, diastolic murmur, rubs, gallop, clicks GI/Abdominal exam: Present: soft, normal bowel sounds. Absent: distended, tenderness, guarding, rebound, rigid Extremities exam: Present: normal inspection, full ROM, normal capillary refill. Absent: tenderness, pedal edema, joint swelling, calf tenderness Back exam: Present: normal inspection Neurological exam: Present: alert, oriented X3, CN II-XII intact Psychiatric exam: Present: normal affect, normal mood Skin exam: Present: warm, dry, intact, normal color. Absent: rash <Blade Lobo - Last Filed: 05/04/23 00:23> - General Exam Comments Initial Comments: Visual Physical Exam Vital signs reviewed General: , nontoxic, no acute distress. Head: Normocephalic, atraumatic Eyes: PERRLA, EOMI ENT: Airway patent Chest: Nonlabored breathing Skin: No visual rash, normal skin tone Neuro: Alert and oriented 3 Musculoskeletal: No gross abnormalities (Kena Buckley) Course <Blade Lobo - Last Filed: 05/04/23 00:23> Vital Signs 04/27/23 04/27/23 04/27/23 17:20 18:30 19:00 Temperature 98 F Pulse Rate 76 68 Respiratory 20 Rate Blood Pressure 116/85 129/81 124/95 O2 Sat by Pulse 93 L 93 L 94 L Oximetry 04/27/23 04/27/23 04/27/23 19:30 19:50 19:56 Temperature Pulse Rate 64 67 68 Respiratory Rate Blood Pressure 126/97 O2 Sat by Pulse 93 L Oximetry 04/27/23 04/27/23 04/27/23 20:00 20:30 21:00 Temperature Pulse Rate 68 79 78 Respiratory Rate Blood Pressure 137/100 133/89 119/89 O2 Sat by Pulse 94 L 93 L 93 L Oximetry 04/27/23 04/27/23 04/27/23 21:30 22:00 23:00 Temperature Pulse Rate 78 66 68 Respiratory Rate Blood Pressure 114/81 138/92 124/69 O2 Sat by Pulse 88 L 100 94 L Oximetry - Reevaluation(s) Reevaluation #1: 04/27/23 20:20 Medical records reviewed (Blade Lobo) Reevaluation #2: 04/27/23 20:20 Patient symptoms unchanged (Blade Lobo) Reevaluation #3: 04/27/23 20:20 Patient informed results and questions answered (ConyjayceeBlade Caren) Reevaluation #4: 04/27/23 20:20 Was pt. sent in by a medical professional or institution ([facility], [employer], urgent care, hospital, or senior living...) When possible be specific @ -no Did you speak to anyone other than the patient for history (EMS, parent, family, police, friend...)? What history was obtained from this source @ -no Did you review nursing and triage notes (agree or disagree)? Why? @ -agree Are old charts reviewed (outside hosp., previous admission, EMS record, old EKG, old radiological studies, urgent care reports/EKG's, senior living records)? Report findings @ -yes Differential Diagnosis (chest pain, altered mental status, abdominal pain women, abdominal pain men, vaginal bleeding, weakness, fever, dyspnea, syncope, headache, dizziness, GI bleed, back pain, seizure, CVA, palpatations, mental health, musculoskeletal)? @ -prior EKG interpreted by me (3pts min.). @ -yes X-rays interpreted by me (1pt min.). @ -yes CT interpreted by me (1pt min.). @ -no U/S interpreted by me (1pt. min.). @ -no What testing was considered but not performed or refused? (CT, X-rays, U/S, labs)? Why? @ -none What meds were considered but not given or refused? Why? @ -none Did you discuss the management of the patient with other professionals (professionals i.e. [employer] [facility], [employer], lab, RT, psych nurse, family welfare social work professor, avionics manager, teacher, property and supply officer, rn case manager)? Give summary @ -no Was smoking cessation discussed for >3mins.? @ -no Was critical care preformed (if so, how long)? @ -no Were there social determinants of health that impacted care today? How? (Homelessness, low income, unemployed, alcoholism, drug addiction, transportati on, low edu. Level, literacy, decrease access to med. care, long term, rehab)? @ -none Was there de-escalation of care discussed even if they declined (Discuss DNR or withdrawal of care, Hospice)? DNR status @ -no What co-morbidities impacted this encounter? (DM, HTN, Smoking, COPD, CAD, Cancer, CVA, ARF, Chemo, Hep., AIDS, mental health diagnosis, sleep apnea, morbid obesity)? @ -none Was patient admitted / discharged? Hospital course, mention meds given and route, prescriptions, significant lab abnormalities, going to OR and other pertinent info. @ - 48 male to the emergency department for evaluation a. Patient presents today for evaluation regards to nausea vomiting and diarrhea with significant nausea abnormalities. Patient be admitted for supportive care Admitted Undiagnosed new problem with uncertain prognosis? @ -no Drug Therapy requiring intensive monitoring for toxicity (Heparin, Nitro, Insulin, Cardizem)? @ -no Were any procedures done? @ -no Diagnosis/symptom? @ -Dehydration, weakness, nausea vomiting diarrhea Acute, or Chronic, or Acute on Chronic? @ -Acute Uncomplicated (without systemic symptoms) or Complicated (systemic symptoms)? @ -Complicated Side effects of treatment? @ -no Exacerbation, Progression, or Severe Exacerbation? @ -exacerbation Poses a threat to life or bodily function? How? (Chest pain, [place], [place], pneumonia, PE, COPD, DKA, ARF, appy, cholecystitis, CVA, Diverticulitis, Homicidal, Suicidal, threat to staff... and all critical care pts) @ -no (Blade Lobo) Reevaluation #5: 04/27/23 20:20 Differential Weakness: Hypoglycemia, shock, sepsis, hyponatremia, anemia, infection, [place], ETOH, adverse medicine reaction, overdose, stroke, this is not meant to be an all-inclusive list. (Blade Lobo) - Consultations Consultation #1: With Dr. Dumont who agrees to admit this patient (Blade Lobo) Medical Decision Making <Kena Buckley - Last Filed: 04/27/23 17:05> - Lab Data Result diagrams: 04/28/23 04:34 04/29/23 07:38 - EKG Data -: EKG Interpreted by Me (EKG is sinus 69 NE 151 QRS 94 QTC 389) - Radiology Data Radiology results: report reviewed (Chest x-rays negative for acute disease), image reviewed <Blade Lobo - Last Filed: 05/04/23 00:23> - Medical Decision Making I performed the quick note portion of the exam. Electronically signed by Kena Buckley PA-C (Kena Buckley) 48 male to the emergency department for evaluation a. Patient presents today for evaluation regards to nausea vomiting and diarrhea with significant nausea abnormalities. Patient be admitted for supportive care (Blade Lobo) - Lab Data Lab Results 04/27/23 04/27/23 04/27/23 Range/Units 17:30 17:30 17:30 WBC 8.2 (3.8-10.6) k/uL RBC 5.08 (4.30-5.90) m/uL Hgb 18.4 H (13.0-17.5) gm/dL Hct 53.5 H (39.0-53.0) % MCV 105.3 H (80.0-100.0) fL MCH 36.3 H (25.0-35.0) pg MCHC 34.5 (31.0-37.0) g/dL RDW 15.1 (11.5-15.5) % Plt Count 180 (150-450) k/uL MPV 7.3 Neutrophils % 73 % Lymphocytes % 21 % Monocytes % 4 % Eosinophils % 1 % Basophils % 0 % Neutrophils # 6.0 (1.3-7.7) k/uL Lymphocytes # 1.8 (1.0-4.8) k/uL Monocytes # 0.3 (0-1.0) k/uL Eosinophils # 0.0 (0-0.7) k/uL Basophils # 0.0 (0-0.2) k/uL Macrocytosis Moderate Sodium 134 L (137-145) mmol/L Potassium 2.6 L* (3.5-5.1) mmol/L Chloride 87 L (98-107) mmol/L Carbon Dioxide 33 H (22-30) mmol/L Anion Gap 14 mmol/L BUN 14 (9-20) mg/dL Creatinine 0.67 (0.66-1.25) mg/dL Est GFR (CKD-EPI)AfAm >90 (>60 ml/min/1.73 sqM) Est GFR (CKD-EPI)NonAf >90 (>60 ml/min/1.73 sqM) Glucose 136 H (74-99) mg/dL Lactic Ac Sepsis Rflx Plasma Lactic Acid Rich 2.3 H* (0.7-2.0) mmol/L Calcium 9.5 (8.4-10.2) mg/dL Phosphorus (2.5-4.5) mg/dL Magnesium (1.6-2.3) mg/dL Total Bilirubin 1.5 H (0.2-1.3) mg/dL AST 26 (17-59) U/L ALT 21 (4-49) U/L Alkaline Phosphatase 84 (38-126) U/L Total Protein 8.0 (6.3-8.2) g/dL Albumin 4.4 (3.5-5.0) g/dL Amylase 48 (30-110) U/L Lipase 169 (23-300) U/L Serum Alcohol mg/dL 04/27/23 04/27/23 Range/Units 18:11 18:49 WBC (3.8-10.6) k/uL RBC (4.30-5.90) m/uL Hgb (13.0-17.5) gm/dL Hct (39.0-53.0) % MCV (80.0-100.0) fL MCH (25.0-35.0) pg MCHC (31.0-37.0) g/dL RDW (11.5-15.5) % Plt Count (150-450) k/uL MPV Neutrophils % % Lymphocytes % % Monocytes % % Eosinophils % % Basophils % % Neutrophils # (1.3-7.7) k/uL Lymphocytes # (1.0-4.8) k/uL Monocytes # (0-1.0) k/uL Eosinophils # (0-0.7) k/uL Basophils # (0-0.2) k/uL Macrocytosis Sodium (137-145) mmol/L Potassium (3.5-5.1) mmol/L Chloride (98-107) mmol/L Carbon Dioxide (22-30) mmol/L Anion Gap mmol/L BUN (9-20) mg/dL Creatinine (0.66-1.25) mg/dL Est GFR (CKD-EPI)AfAm (>60 ml/min/1.73 sqM) Est GFR (CKD-EPI)NonAf (>60 ml/min/1.73 sqM) Glucose (74-99) mg/dL Lactic Ac Sepsis Rflx Y Plasma Lactic Acid Rich (0.7-2.0) mmol/L Calcium (8.4-10.2) mg/dL Phosphorus 4.3 (2.5-4.5) mg/dL Magnesium 1.4 L (1.6-2.3) mg/dL Total Bilirubin (0.2-1.3) mg/dL AST (17-59) U/L ALT (4-49) U/L Alkaline Phosphatase (38-126) U/L Total Protein (6.3-8.2) g/dL Albumin (3.5-5.0) g/dL Amylase (30-110) U/L Lipase (23-300) U/L Serum Alcohol <10 mg/dL Disposition <Kena Buckley - Last Filed: 04/27/23 17:05> Is patient prescribed a controlled substance at d/c from ED?: No Time of Disposition: 19:00 <Blade Lobo - Last Filed: 05/04/23 00:23> Clinical Impression: Dehydration, Gastroenteritis, Hypokalemia, Weakness, Nausea & vomiting Disposition: ADMITTED IP TO THIS HOSP Condition: Fair
[2023-04-27 17:53] LABS: Basophils % (A) 0 %; Eosinophils % (A) 1 %; HCT 53.5 % (39.0-53.0); HGB 18.4 gm/dL (13.0-17.5); Lymphocytes # (A) 1.8 k/uL (1.0-4.8); Lymphocytes % (A) 21 %; MCH 36.3 pg (25.0-35.0); MCHC 34.5 g/dL (31.0-37.0); MCV 105.3 fL (80.0-100.0); Macrocytosis Moderate; Mean Platelet Volume 7.3; Monocytes # (A) 0.3 k/uL (0-1.0); Monocytes % (A) 4 %; Neutrophils % (A) 73 %; Platelet Count 180 k/uL (150-450); RBC 5.08 m/uL (4.30-5.90); RDW 15.1 % (11.5-15.5); WBC 8.2 k/uL (3.8-10.6)
[2023-04-27 18:02] LABS: ALT 21 U/L (4-49); AST 26 U/L (17-59); African American GFR (CKD) >90 (>60 ml/min/1.73 sqM); Albumin 4.4 g/dL (3.5-5.0); Alkaline Phosphatase 84 U/L (38-126); Amylase 48 U/L (30-110); Anion Gap 14 mmol/L; Blood Urea Nitrogen 14 mg/dL (9-20); Calcium 9.5 mg/dL (8.4-10.2); Carbon Dioxide 33 mmol/L (22-30); Chloride 87 mmol/L (98-107); Glucose 136 mg/dL (74-99); Lipase 169 U/L (23-300); Non-African American GFR(CKD) >90 (>60 ml/min/1.73 sqM); Sodium 134 mmol/L (137-145); Total Bilirubin 1.5 mg/dL (0.2-1.3)
[2023-04-27 18:10] LABS: Potassium 2.6 mmol/L (3.5-5.1)
[2023-04-27] MEDS ORDERED: SODIUM CHLORIDE 0.9% 500 ML 500 ML IV STA (18:18)
[2023-04-27] MEDS ORDERED: SODIUM CHLORIDE 0.9% 1,000 ML IV STA (18:18)
[2023-04-27] MEDS ORDERED: ONDANSETRON 4 MG/2 ML VIAL IVP STA (18:18)
--- NOTE | 2023-04-27 18:25 | XR ---
EXAMINATION TYPE: XR chest 2V DATE OF EXAM: 04/27/2023 5:50 PM CLINICAL INDICATION:Male, 48 years old with history of vomiting; [facility] COMPARISON: Chest radiographs from 02/26/2023 TECHNIQUE: XR chest 2V Frontal and lateral views of the chest. FINDINGS: Lungs/Pleura: There is flattening of the diaphragm with increased lucency of the lungs. No evidence o f pneumothorax, pleural effusion or focal consolidation. Pulmonary vascularity: Unremarkable. Heart/mediastinum: Cardiomediastinal silhouette is unremarkable. Musculoskeletal: No acute osseous pathology. IMPRESSION: 1. No acute cardiopulmonary disease process. 2. COPD changes.
[2023-04-27] MEDS: SODIUM CHLORIDE 0.9% 1,000 ML IV SCH ×4 (18:42→23:41)
[2023-04-27] MEDS ORDERED: ONDANSETRON 4 MG/2 ML VIAL IVP PRN (19:06)
[2023-04-27] MEDS ORDERED: IPRATROPIUM-ALBUTEROL 3 ML NEB INHALATION STA (19:06)
[2023-04-27] MEDS ORDERED: methylPREDNISolone SOD SUCCI 125 MG/2 ML VIAL IV STA (19:06)
[2023-04-27] MEDS ORDERED: IPRATROPIUM-ALBUTEROL 3 ML NEB INHALATION PRN (19:06)
[2023-04-27] MEDS ORDERED: NALOXONE 0.4 MG/ML 1 ML VIAL IV PRN (19:06)
[2023-04-27] MEDS ORDERED: POTASSIUM BICARBONATE/CIT AC 20 MEQ TABLET.EFF PO ONE (19:30)
[2023-04-27 19:34] LABS: Alcohol <10 mg/dL
[2023-04-27 19:39] LABS: Magnesium 1.4 mg/dL (1.6-2.3); Phosphorus 4.3 mg/dL (2.5-4.5)
[2023-04-27] MEDS: methylPREDNISolone SOD SUCCI 125 MG/2 ML VIAL IV SCH (23:39)
[2023-04-28 08:52] LABS: Basophils # (A) 0.01 X 10*3/uL (0.00-0.10); Basophils % (A) 0.3 %; Eosinophils # (A) 0 X 10*3/uL (0.04-0.35); Eosinophils % (A) 0 %; HCT 47.7 % (39.6-50.0); HGB 16.6 g/dL (13.0-17.0); Lymphocytes % (A) 15.5 %; MCH 35.6 pg (27.0-32.0); MCHC 34.8 g/dL (32.0-37.0); MCV 102.4 FL (80.0-97.0); Mean Platelet Volume 9.6 FL (9.5-12.2); Monocytes # (A) 0.07 X 10*3/uL (0.20-1.00); Monocytes % (A) 1.8 %; NRBC Per 100 WBC 0 X 10*3/uL (0.00-0.01); Neutrophils # (A) 3.17 X 10*3/uL (1.80-7.70); Neutrophils % (A) 81.9 %; Platelet Count 141 X 10*3/uL (140-440); RBC 4.66 X 10*6/uL (4.40-5.60); RDW 16.5 % (11.5-14.5); WBC 3.87 X 10*3/uL (4.50-10.00)
[2023-04-28] MEDS: methylPREDNISolone SOD SUCCI 125 MG/2 ML VIAL IV SCH ×3 (09:03→23:23)
[2023-04-28] MEDS: MORPHINE SULFATE 4 MG/ML SYRINGE IV PRN ×3 (09:03→23:23)
[2023-04-28 09:04] LABS: ALT 13 U/L (10-49); AST 20 U/L (14-35); Albumin 3.9 g/dL (3.8-4.9); Albumin/Globulin Ratio 1.44 Ratio (1.60-3.17); Alkaline Phosphatase 82 U/L (41-126); BUN/Creat Ratio 15.29 Ratio (12.00-20.00); Blood Urea Nitrogen 10.7 mg/dL (9.0-27.0); Calcium 8.6 mg/dL (8.7-10.3); Carbon Dioxide 27.9 mmol/L (21.6-31.8); Chloride 94 mmol/L (96-109); Globulin 2.7 g/dL (1.6-3.3); Glucose 146 mg/dL (70-110); Lipase 17 U/L (14-60); Magnesium 1.4 mg/dL (1.5-2.4); Phosphorus 3.4 mg/dL (2.4-5.1); Potassium 3.1 mmol/L (3.5-5.5); Sodium 136 mmol/L (135-145); Total Bilirubin 1.2 mg/dL (0.3-1.2); Total Protein 6.6 g/dL (6.2-8.2)
[2023-04-28] MEDS ORDERED: NICOTINE 21MG/24HR PATCH TRANSDERM PRN (11:01)
[2023-04-28] MEDS ORDERED: LORazepam 2 MG/ML INJ IV PRN ×2 (11:02)
[2023-04-28] MEDS: SODIUM CHLORIDE 0.9% 1,000 ML IV SCH ×3 (11:08→19:28)
[2023-04-28] MEDS: PREGABALIN 75 MG CAP PO SCH ×2 (11:13→19:27)
[2023-04-28] MEDS ORDERED: NON FORMULARY DRUG (Pregabalin [Lyrica] 150 MG Capsule) PO SCH (21:00)
[2023-04-29] MEDS: SODIUM CHLORIDE 0.9% 1,000 ML IV SCH ×2 (01:48→09:02)
[2023-04-29] MEDS: MORPHINE SULFATE 4 MG/ML SYRINGE IV PRN ×2 (05:41→11:03)
[2023-04-29] MEDS ORDERED: LEVOTHYROXINE 75 MCG TAB PO SCH (06:30)
[2023-04-29 08:27] LABS: African American GFR (CKD) >90 (>60 ml/min/1.73 sqM); Anion Gap 10 mmol/L; Blood Urea Nitrogen 14 mg/dL (9-20); Calcium 8.3 mg/dL (8.4-10.2); Carbon Dioxide 25 mmol/L (22-30); Chloride 98 mmol/L (98-107); Glucose 123 mg/dL (74-99); Non-African American GFR(CKD) >90 (>60 ml/min/1.73 sqM); Potassium 3.1 mmol/L (3.5-5.1); Sodium 133 mmol/L (137-145)
[2023-04-29] MEDS: PREGABALIN 75 MG CAP PO SCH (08:57)
[2023-04-29] MEDS: methylPREDNISolone SOD SUCCI 125 MG/2 ML VIAL IV SCH (08:58)
[2023-04-29] MEDS ORDERED: THIAMINE 100 MG TAB PO SCH (09:00)
[2023-04-29 12:44] VITALS: BP 162/88; PULSE 60; RESP 18; TEMP 98.3
[2023-04-29] MEDS ORDERED: hydrALAZINE HCL 50 MG TAB PO SCH (12:45)
[2023-04-29] MEDS ORDERED: POTASSIUM CHLORIDE ER 20 MEQ TAB.ER PO SCH (12:45)
--- NOTE | 2023-04-29 18:50 | HP ---
HISTORY AND PHYSICAL CHIEF COMPLAINT: Nausea, vomiting, diarrhea, hyponatremia, and alcoholism. HISTORY OF PRESENT ILLNESS: This gentleman presented to the emergency room with nausea and vomiting, which was frequent. He has had no hematemesis or melena. This is related to his alcohol abuse. REVIEW OF SYSTEMS: He denies any blackouts, seizures, neurologic problems, etc. Past medical history, family history, and personal and social histories are unremarkable otherwise. PHYSICAL EXAMINATION: VITAL SIGNS: Blood pressure is 152/92 with a pulse of 89, respirations 32, and he is afebrile. GENERAL: Appeared to be intoxicated. Face was flushed. HEAD, EARS, EYES, NOSE, MOUTH, AND THROAT: Normal. CHEST: Clear. CARDIAC: Demonstrated tachycardia. ABDOMEN: Soft. Nontender. EXTREMITIES: Normal. IMPRESSION: 1. Intractable nausea and vomiting. 2. Dehydration. 3. Hypokalemia. 4. Diarrhea. 5. Acute alcohol intoxication. 6. Chronic alcoholism. PLAN: 1. Bed rest. 2. IV fluids. 3. Watch for DTs. MMTYESHA / SOLOMONN: [id number] /
--- NOTE | 2023-04-30 07:41 | DS ---
DISCHARGE SUMMARY CHIEF COMPLAINT: Hypokalemia, nausea, and vomiting. HISTORY OF PRESENT ILLNESS AND PHYSICAL EXAMINATION: Details of this man's history and physical can be found in the initial workup. COURSE IN THE HOSPITAL: After admission, he was placed on bedrest, started intravenous fluids, and watch for DTs. Electrolytes were corrected. He was doing well. He was anxious to be discharged and was sent home on the . FINAL DIAGNOSES: 1. Acute alcohol intoxication. 2. Nausea and vomiting. 3. Dehydration. 4. Hypokalemia. OPERATIONS: None. CONSULTATION: None. He is improved. MMODL / IJN: [id number] /
== END 2023-04-29 14:27 | disposition home or self-care (01) ==
LOC: EC 16:55 → INTOOBSV 19:08 → 5NMEDONC 19:08 → UNDODISIN 04-29 14:27
PROVIDERS: ADMIT Family Medicine; ATTEND Family Medicine
DX: F10.120 Alcohol abuse with intoxication, uncomplicated (principal); M86.672 Other chronic osteomyelitis, left ankle and foot; Y90.0 Blood alcohol level of less than 20 mg/100 ml; E87.6 Hypokalemia; E86.0 Dehydration; K52.9 Noninfective gastroenteritis and colitis, unspecified; J44.9 Chronic obstructive pulmonary disease, unspecified; K21.9 Gastro-esophageal reflux disease without esophagitis; I10 Essential (primary) hypertension; F41.9 Anxiety disorder, unspecified; Z79.890 Hormone replacement therapy; Z79.899 Other long term (current) drug therapy
CPT/HCPCS: 96376 ×3; 96361 ×3; 96375 ×2; 96374; 99285; 36415; 93005; 80053 ×2; 80048; 82150; 83605; 83690 ×2; 83735 ×2; 84100 ×2; 84132; 85025 ×2; 71046; G0378 ×3; G0480; S4990; J2270 ×2; J2930 ×3; J2405; 80320

== ENCOUNTER 2023-10-29 14:09 | Emergency (ER) | payer OTHER ==
--- NOTE | 2023-10-29 14:16 | ED ---
Nausea/Vomiting/Diarrhea HPI - General Chief complaint: Nausea/Vomiting/Diarrhea Stated complaint: Vomiting Time Seen by Provider: 10/29/23 14:14 Source: patient, family, RN notes reviewed Mode of arrival: wheelchair Limitations: no limitations - History of Present Illness Initial comments: This is a 48 year old male who presents to the emergency department for nausea and vomiting. Symptoms began yesterday. He has abdominal discomfort from all of the vomiting. He has also had a cough for the last few days. Family is concerned because the patient has a history of infection leading to sepsis to the left ankle requiring subsequent amputation. This occurred about 6 months ago. At that time he also felt ill. Denies any pain to the stump or other extremities. States that he wants to make sure that he is not getting septic again. His family contacted his PCP, who advised he come to the emergency department for evaluation. MD complaint: nausea, vomiting - Related Data Home Medications Medication Instructions Recorded Confirmed HYDROcodone/APAP 7.5-325MG [Drums 1 tab PO QID 01/29/22 04/27/23 7.5-325] Levothyroxine Sodium [Synthroid] 75 mcg PO DAILY 02/25/23 04/27/23 Nicotine 21Mg/24Hr Patch [Habitrol] 1 patch TRANSDERM DAILY PRN 02/25/23 04/27/23 Pregabalin [Lyrica] 150 mg PO BID 02/25/23 04/27/23 diazePAM [Valium] 5 mg PO HS PRN 02/25/23 04/27/23 methocarbamoL 250 mg PO Q8H 02/25/23 04/27/23 Previous Rx's Medication Instructions Recorded Potassium Chloride ER [K-Dur 20] 20 meq PO TID #30 tab 04/29/23 Thiamine [Vitamin B-1] 100 mg PO BID #60 tab 04/29/23 hydrALAZINE HCL [Apresoline] 25 mg PO TID #30 tab 04/29/23 Metoclopramide [Reglan] 10 mg PO Q6H PRN #30 tab 10/29/23 Ondansetron Odt [Zofran Odt] 4 mg PO Q8HR PRN #30 tab 10/29/23 Allergies Allergy/AdvReac Type Severity Reaction Status Date / Time No Known Allergies Allergy Verified 10/29/23 14:36 Review of Systems ROS Statement: Those systems with pertinent positive or pertinent negative responses have been documented in the HPI. ROS Other: All systems not noted in ROS Statement are negative. Past Medical History Past Medical History: COPD, GERD/Reflux, Hypertension, Rheumatoid Arthritis (RA) Additional Past Medical History / Comment(s): Chronic osteomyelitis left ankle, pain,numbness and tingling in hands and rt leg, History of Any Multi-Drug Resistant Organisms: None Reported Past Surgical History: Orthopedic Surgery Additional Past Surgical History / Comment(s): left ankle surgery (fx/injury) x 4, left hip repair of fx with rods and pins, metal plate in jaw. amputation below knee left Past Anesthesia/Blood Transfusion Reactions: No Reported Reaction Past Psychological History: Anxiety Smoking Status: Current every day smoker Past Alcohol Use History: Occasional Additional Past Alcohol Use History / Comment(s): smokes < 1/2 PPD, started smoking age 15 Past Drug Use History: Marijuana Additional Drug Use History / Comment(s): occ. - Past Family History Father Family Medical History: Cancer Mother Family Medical History: Cancer General Exam Limitations: no limitations General appearance: alert, in no apparent distress Head exam: Present: atraumatic, normocephalic, normal inspection Respiratory exam: Present: normal lung sounds bilaterally. Absent: respiratory distress, wheezes, rales, rhonchi, stridor Cardiovascular Exam: Present: regular rate, normal rhythm, normal heart sounds. Absent: systolic murmur, diastolic murmur, rubs, gallop, clicks GI/Abdominal exam: Present: soft, tenderness (Generalized), normal bowel sounds. Absent: distended Extremities exam: Present: other (There is no swelling, erythema, tenderness, or wounds to the bilateral lower extremities.) Neurological exam: Present: alert, oriented X3, CN II-XII intact Psychiatric exam: Present: normal affect, normal mood Skin exam: Present: warm, dry, intact, normal color. Absent: rash Course Vital Signs 10/29/23 10/29/23 10/29/23 14:33 17:00 18:51 Temperature 98.7 F Pulse Rate 80 66 75 Respiratory 22 20 20 Rate Blood Pressure 149/89 176/105 155/112 O2 Sat by Pulse 97 95 97 Oximetry 10/29/23 19:15 Temperature Pulse Rate 87 Respiratory 18 Rate Blood Pressure 155/99 O2 Sat by Pulse 98 Oximetry Medical Decision Making - Medical Decision Making This is a 48 year old male who presents to the emergency department for nausea and vomiting. Was pt. sent in by a medical professional or institution? @ -His PCP Did you speak to anyone other than the patient for history? @ -No Did you review nursing and triage notes? @ -Yes, and I agree, it is accurate with regards to the patient's symptoms. Were old charts reviewed? @ -No Differential Diagnosis? @ -Differential Nausea and Vomiting: Gastroenteritis, cholecystitis, appendicitis, pancreatitis, migraine, benign positional vertigo, food borne illness, pyelonephritis, irritable bowel syndrome, influenza, Covid, GERD, incarcerated hernia, intestinal obstruction, this is not meant to be an all-inclusive list. EKG interpreted by me (3pts min.)? @ -EKG interpreted by me demonstrating the following: Sinus rhythm. Ventr icular rate 61 bpm, OR interval 167 ms, QRS duration 91 ms, QTc 397 ms. X-rays interpreted by me (1pt min.)? @ -Chest x-ray obtained, my interpretation identifies no localized consolidations or infiltrates. CT interpreted by me (1pt min.)? @ -CT scan of the abdomen and pelvis obtained. My interpretation identifies no dilation of the large or small bowel loops. U/S interpreted by me (1pt. min.)? @ -Not obtained What testing was considered but not performed? (CT, X-rays, U/S, labs)? Why? @ -None What meds were considered but not given? Why? @ -None Did you discuss the management of the patient with other professionals? @ -No Did you reconcile home meds? @ -No Was smoking cessation discussed for >3mins.? @ -No Was critical care preformed (if so, how long)? @ -No Were there social determinants of health that impacted care today? How? (Homelessness, low income, unemployed, alcoholism, drug addiction, transportation, low edu. Level, literacy, decrease access to med. care, half-way, rehab)? @ -No Was there de-escalation of care discussed even if they declined? (Discuss DNR or withdrawal of care, Hospice)? @ -No What co-morbidities impacted this encounter? (DM, HTN, Smoking, COPD, CAD, Cancer, CVA, Hep., AIDS, mental health diagnosis, sleep apnea, morbid obesity)? @ -COPD Was patient admitted / discharged? @ -Discharged. Lab work obtained and found to be relatively unremarkable. COVID, influenza, and RSV testing negative. Urinalysis negative for signs of infection. Chest x-ray reveals no acute process. CT scan of the abdomen and pelvis demonstrates no clearly acute obstructive or inflammatory abnormality to explain the patient's symptoms. He has questional mild haziness of the left perinephric fat. They advised correlation with UA to exclude infection. UA negative for signs of infection. There is also a mildly thickened appearance of the distal esophageal wall that could be on an inflammatory basis. There are also changes in the proximal femur consistent with remote healed hardware transfixed injuries and findings in the left femoral head with mild subchondral collapse compatible with changes of AVN. Patient denies any hip pain. Findings reviewed with the patient. He was treated with IV fluids, pain medication, and nausea medication, and his symptoms were well-controlled. He was tolerating oral intake afterwards. Discussed the possibility of symptoms being related to a viral gastroenteritis. Patient did feel stable for discharge home. Prescription for Zofran and Reglan provided with dosing instructions reviewed. He is advised to slowly advance his diet as tolerated, remain well-hydrated, and follow-up with his primary care provider. Undiagnosed new problem with uncertain prognosis? @ -None Drug Therapy requiring intensive monitoring for toxicity (Heparin, Nitro, Insu inga, Cardizem)? @ -None Were any procedures done? @ -None Diagnosis/symptom? @ -Abdominal pain, N/V Acute, or Chronic, or Acute on Chronic? @ -Acute Uncomplicated (without systemic symptoms) or Complicated (systemic symptoms)? @ -Uncomplicated Side effects of treatment? @ -None Exacerbation, Progression, or Severe Exacerbation] @ -Not applicable Poses a threat to life or bodily function? @ -No Return precautions reviewed in depth, the patient is instructed to return to the emergency department with any new, worsening, or concerning symptoms. Patient verbalized understanding. This case was discussed in detail with the attending ED physician, Dr. Lobo. Presentation, findings, and treatment plan discussed in detail as well. - Lab Data Result diagrams: 10/29/23 15:30 10/29/23 15:30 Lab Results 10/29/23 10/29/23 10/29/23 Range/Units 15:30 15:30 15:30 WBC 9.0 (3.8-10.6) k/uL RBC 4.86 (4.30-5.90) m/uL Hgb 18.5 H (13.0-17.5) gm/dL Hct 54.2 H (39.0-53.0) % MCV 111.5 H (80.0-100.0) fL MCH 38.1 H (25.0-35.0) pg MCHC 34.2 (31.0-37.0) g/dL RDW 14.8 (11.5-15.5) % Plt Count 201 (150-450) k/uL MPV 8.1 Neutrophils % 85 % Lymphocytes % 8 % Monocytes % 5 % Eosinophils % 1 % Basophils % 0 % Neutrophils # 7.6 (1.3-7.7) k/uL Lymphocytes # 0.7 L (1.0-4.8) k/uL Monocytes # 0.5 (0-1.0) k/uL Eosinophils # 0.1 (0-0.7) k/uL Basophils # 0.0 (0-0.2) k/uL Manual Slide Review Performed Poikilocytosis (manual Present Macrocytosis Marked A Sodium 134 L (137-145) mmol/L Potassium 4.0 (3.5-5.1) mmol/L Chloride 100 (98-107) mmol/L Carbon Dioxide 23 (22-30) mmol/L Anion Gap 11 mmol/L BUN 9 (9-20) mg/dL Creatinine 0.56 L (0.66-1.25) mg/dL Est GFR (CKD-EPI)AfAm >90 (>60 ml/min/1.73 sqM) Est GFR (CKD-EPI)NonAf >90 (>60 ml/min/1.73 sqM) Glucose 170 H (74-99) mg/dL Plasma Lactic Acid Rich (0.7-2.0) mmol/L Calcium 9.4 (8.4-10.2) mg/dL Magnesium 1.4 L (1.6-2.3) mg/dL Total Bilirubin 0.8 (0.2-1.3) mg/dL AST 30 (17-59) U/L ALT 21 (4-49) U/L Alkaline Phosphatase 111 (38-126) U/L Troponin I (0.000-0.034) ng/mL Total Protein 7.4 (6.3-8.2) g/dL Albumin 4.2 (3.5-5.0) g/dL Amylase 42 (30-110) U/L Lipase 43 (23-300) U/L Urine Color Yellow Urine Appearance Clear (Clear) Urine pH 6.5 (5.0-8.0) Ur Specific [place] >1.050 H (1.001-1.035) Urine Protein 1+ H (Negative) Urine Glucose (UA) Negative (Negative) Urine Ketones 1+ H (Negative) Urine Blood Negative (Negative) Urine Nitrite Negative (Negative) Urine Bilirubin Negative (Negative) Urine Urobilinogen <2.0 (<2.0) mg/dL Ur Leukocyte Esterase Negative (Negative) Urine RBC 1 (0-5) /hpf Urine WBC 1 (0-5) /hpf Ur Squamous Epith Cells <1 (0-4) /hpf Influenza Type A (PCR) (Not Detectd) Influenza Type B (PCR) (Not Detectd) RSV (PCR) (Not Detectd) SARS-CoV-2 (PCR) (Not Detectd) 10/29/23 10/29/23 10/29/23 Range/Units 15:30 15:30 15:30 WBC (3.8-10.6) k/uL RBC (4.30-5.90) m/uL Hgb (13.0-17.5) gm/dL Hct (39.0-53.0) % MCV (80.0-100.0) fL MCH (25.0-35.0) pg MCHC (31.0-37.0) g/dL RDW (11.5-15.5) % Plt Count (150-450) k/uL MPV Neutrophils % % Lymphocytes % % Monocytes % % Eosinophils % % Basophils % % Neutrophils # (1.3-7.7) k/uL Lymphocytes # (1.0-4.8) k/uL Monocytes # (0-1.0) k/uL Eosinophils # (0-0.7) k/uL Basophils # (0-0.2) k/uL Manual Slide Review Poikilocytosis (manual Macrocytosis Sodium (137-145) mmol/L Potassium (3.5-5.1) mmol/L Chloride (98-107) mmol/L Carbon Dioxide (22-30) mmol/L Anion Gap mmol/L BUN (9-20) mg/dL Creatinine (0.66-1.25) mg/dL Est GFR (CKD-EPI)AfAm (>60 ml/min/1.73 sqM) Est GFR (CKD-EPI)NonAf (>60 ml/min/1.73 sqM) Glucose (74-99) mg/dL Plasma Lactic Acid Rich 1.4 (0.7-2.0) mmol/L Calcium (8.4-10.2) mg/dL Magnesium (1.6-2.3) mg/dL Total Bilirubin (0.2-1.3) mg/dL AST (17-59) U/L ALT (4-49) U/L Alkaline Phosphatase (38-126) U/L Troponin I <0.012 (0.000-0.034) ng/mL Total Protein (6.3-8.2) g/dL Albumin (3.5-5.0) g/dL Amylase (30-110) U/L Lipase (23-300) U/L Urine Color Urine Appearance (Clear) Urine pH (5.0-8.0) Ur Specific [place] (1.001-1.035) Urine Protein (Negative) Urine Glucose (UA) (Negative) Urine Ketones (Negative) Urine Blood (Negative) Urine Nitrite (Negative) Urine Bilirubin (Negative) Urine Urobilinogen (<2.0) mg/dL Ur Leukocyte Esterase (Negative) Urine RBC (0-5) /hpf Urine WBC (0-5) /hpf Ur Squamous Epith Cells (0-4) /hpf Influenza Type A (PCR) Not Detected (Not Detectd) Influenza Type B (PCR) Not Detected (Not Detectd) RSV (PCR) Not Detected (Not Detectd) SARS-CoV-2 (PCR) Not Detected (Not Detectd) - Radiology Data Radiology results: report reviewed, image reviewed Disposition Clinical Impression: Gastroenteritis Disposition: HOME SELF-CARE Instructions (If sedation given, give patient instructions): Acute Nausea and Vomiting (ED) Additional Instructions: Return to the emergency department with any new, worsening, or concerning s ymptoms. You can take the Zofran up to every 8 hours as needed for nausea and vomiting. You can take the Reglan up to every 6 hours as needed for nausea and vomiting. Slowly advance your diet as tolerated and remain well-hydrated. Follow up with your primary care provider in 1-2 days. Prescriptions: Metoclopramide [Reglan] 10 mg PO Q6H PRN #30 tab PRN Reason: Nausea And Vomiting Ondansetron Odt [Zofran Odt] 4 mg PO Q8HR PRN #30 tab PRN Reason: Nausea And Vomiting Is patient prescribed a controlled substance at d/c from ED?: No Referrals: Freddy Dumont MD [Primary Care Provider] - 1-2 days Time of Disposition: 18:57
[2023-10-29 14:59] VITALS: TEMP 98.7
[2023-10-29] MEDS: ONDANSETRON 4 MG/2 ML VIAL IVP STA (15:28)
[2023-10-29] MEDS: SODIUM CHLORIDE 0.9% 1,000 ML IV STA (15:30)
[2023-10-29] MEDS: FAMOTIDINE 20 MG/2 ML VIAL IV STA (15:35)
[2023-10-29] MEDS: HYDROmorphone 0.5 MG/0.5 ML SYRINGE IVP STA ×2 (15:36→18:24)
[2023-10-29 15:40] LABS: Basophils % (A) 0 %; Eosinophils # (A) 0.1 k/uL (0-0.7); Eosinophils % (A) 1 %; HCT 54.2 % (39.0-53.0); HGB 18.5 gm/dL (13.0-17.5); Lymphocytes # (A) 0.7 k/uL (1.0-4.8); Lymphocytes % (A) 8 %; MCH 38.1 pg (25.0-35.0); MCHC 34.2 g/dL (31.0-37.0); MCV 111.5 fL (80.0-100.0); Macrocytosis Marked; Mean Platelet Volume 8.1; Monocytes # (A) 0.5 k/uL (0-1.0); Monocytes % (A) 5 %; Neutrophils # (A) 7.6 k/uL (1.3-7.7); Neutrophils % (A) 85 %; Platelet Count 201 k/uL (150-450); RBC 4.86 m/uL (4.30-5.90); RDW 14.8 % (11.5-15.5)
--- NOTE | 2023-10-29 15:59 | XR ---
EXAMINATION TYPE: XR chest 2V DATE OF EXAM: 10/29/2023 COMPARISON: 04/27/2023 INDICATION: Cough TECHNIQUE: Frontal and lateral views of the chest are obtained. FINDINGS: The heart size is normal. The pulmonary vasculature is normal. The lungs are clear. There is hyperinflation flattening the diaphragms compatible with COPD. IMPRESSION: 1. No acute pulmonary process. 2. COPD
[2023-10-29 16:00] LABS: ALT 21 U/L (4-49); AST 30 U/L (17-59); African American GFR (CKD) >90 (>60 ml/min/1.73 sqM); Albumin 4.2 g/dL (3.5-5.0); Alkaline Phosphatase 111 U/L (38-126); Amylase 42 U/L (30-110); Anion Gap 11 mmol/L; Blood Urea Nitrogen 9 mg/dL (9-20); Calcium 9.4 mg/dL (8.4-10.2); Carbon Dioxide 23 mmol/L (22-30); Chloride 100 mmol/L (98-107); Glucose 170 mg/dL (74-99); Lipase 43 U/L (23-300); Magnesium 1.4 mg/dL (1.6-2.3); Non-African American GFR(CKD) >90 (>60 ml/min/1.73 sqM); Sodium 134 mmol/L (137-145); Total Bilirubin 0.8 mg/dL (0.2-1.3); Total Protein 7.4 g/dL (6.3-8.2)
[2023-10-29 16:36] LABS: Poikilocytosis (M) Present
--- NOTE | 2023-10-29 18:19 | CT ---
EXAMINATION TYPE: CT abdomen pelvis w con CT DLP: 1200.1 mGycm, Automated exposure control for dose reduction was used. DATE OF EXAM: 10/29/2023 4:08 PM COMPARISON: None. CLINICAL INDICATION:Male, 48 years old with history of Abdominal pain, acute, nonlocalized; Umbilical midline abdominal pain x 2 days TECHNIQUE: Axial CT of the abdomen and pelvis. Sagittal and coronal reformats were created on a [employer] workstation. Contrast used:100 ml mL of Isovue 300 with IV Contrast, (none if empty) Oral contrast used: without Oral Contrast (none if empty) FINDINGS: LOWER CHEST: Mild strandy opacities in the lung bases suggesting subsegmental atelectasis. Heart size is normal. No pericardial or pleural effusion. ABDOMEN LIVER: Tiny hypodensity in the left lobe, probably benign. GALLBLADDER AND BILE DUCTS: Unremarkable gallbladder. No biliary ductal dilatation. PANCREAS: Unremarkable. SPLEEN: Unremarkable. ADRENAL GLANDS: Unremarkable. KIDNEYS AND URETERS: Kidneys enhance symmetrically without evidence of mass or hydronephrosis. No vis ible calculi. There is question mild haziness of the left perinephric fat. PELVIS Assessment limited by artifact from bilateral proximal femoral hardware. BLADDER: Incompletely distended but grossly unremarkable. REPRODUCTIVE: Unremarkable. ABDOMEN & PELVIS STOMACH AND BOWEL: Mildly thickened appearance of the distal esophageal wall. Stomach is mildly fluid distended. Mild thickening of the cardia is not excluded. Small calcific foci suggesting ingested ma terial in the stomach and distal bowel. Fluid in the duodenal sweep without significant distention. N o evidence of bowel obstruction. Appendix appears normal. Mild stool in the colon. There is no focal acute abnormality demonstrated. PERITONEUM/RETROPERITONEUM: No evidence of pneumoperitoneum or free fluid. VASCULATURE: Mild to moderate atherosclerotic calcifications are present throughout the abdominal aor ta and its branches. No evidence of aortic aneurysm. Portal veins are enhancing. Splenic vein is pa tent. SMV appears patent. LYMPH NODES: No enlarged nodes by CT size criteria. SOFT TISSUE/ABDOMINAL WALL: Tiny fat containing umbilical and bilateral inguinal hernias, without inf lammatory change. In the left anterior pelvic wall there is a subcutaneous 2 cm circumscribed structu re which could represent sebaceous cyst. MUSCULOSKELETAL: No evidence of an acute osseous abnormality. Mild/moderate degenerative changes of t he lumbar spine and hips. Right femoral head retains a normal spherical shape. Changes in the proxima l femur transfixed by intramedullary amaris and dynamic compression screw, compatible with old healed fr acture. There is an egg-shaped left femoral head with lucency and mild subchondral collapse at the superior a spect of the femoral head compatible with changes of AVN; correlate for current hip pain. Bony deform ity of the proximal left femur transfixed by intramedullary amaris and dynamic compression screws, consi stent with old healed fracture. IMPRESSION: 1. No clearly acute obstructive or inflammatory abnormality to explain the patient's symptoms. 2. Questionable mild haziness of the left perinephric fat. Correlate clinically with UA to help excl ude infection. 3. Mildly thickened appearance of the distal esophageal wall, and questionably gastric cardia, could be on an inflammatory basis. 4. No evidence of bowel obstruction, free fluid, or free air. Appendix appears normal. 5. Changes in the proximal femurs consistent with remote healed hardware-transfixed injuries. 6. Findings in the left femoral head with mild subchondral collapse at the superior aspect compatibl e with changes of AVN; correlate for any current hip pain.
[2023-10-29] MEDS: METOCLOPRAMIDE 5 MG/ML 2 ML VIAL IVP STA (18:23)
[2023-10-29 18:38] LABS: Appearance,Urine Clear (Clear); Bilirubin,Urine Negative (Negative); Blood,Urine Negative (Negative); Color,Urine Yellow; Glucose,Urine (UA) Negative (Negative); Ketones,Urine 1+ (Negative); Leukocyte Esterase,Urine Negative (Negative); Nitrite,Urine Negative (Negative); PH, Urine 6.5 (5.0-8.0); Protein,Urine 1+ (Negative); RBC,Urine 1 /hpf (0-5); Squamous Epithelial Cell,Urine <1 /hpf (0-4); Urobilinogen,Urine <2.0 mg/dL (<2.0); WBC,Urine 1 /hpf (0-5)
[2023-10-29 18:41] LABS: Specific Gravity,Urine >1.050 (1.001-1.035)
[2023-10-29] MEDS: METOCLOPRAMIDE 10 MG TAB PO STA (19:11)
[2023-10-29] MEDS: ONDANSETRON 4 MG ODT STARTER PACK 2 TAB BTL PO STA (19:11)
[2023-10-29 19:56] VITALS: BP 155/99; PULSE 87; RESP 18
== END 2023-10-29 19:17 | disposition home or self-care (01) ==
LOC: EC 14:09
DX: K52.9 Noninfective gastroenteritis and colitis, unspecified (principal); J44.9 Chronic obstructive pulmonary disease, unspecified; K22.89 Other specified disease of esophagus; F17.210 Nicotine dependence, cigarettes, uncomplicated
CPT/HCPCS: 36415; 80053; 82150; 83605; 83690; 83735; 84484; 85025; 81001; 87636; 71046; 74177; 99285; 96374; 96375 ×2; 96376; 96361; J2765; J2405; J3490; S0119; J1170; Q9967